=== PATIENT | male | born 1960 | race Caucasian/White ===

== ENCOUNTER 2024-03-19 11:42 | Outpatient (OUT) | payer OTHER, SELFPAY ==
[2024-03-19 12:23] LABS: Basophils Absolute Auto 0.1 10^3/uL (0.0-0.1); Basophils Percent Auto 0.9 % (0.2-2.0); Eosinophils Absolute Auto 0.1 10^3/uL (0.0-0.7); Hematocrit 46.3 % (42.0-54.0); Hemoglobin 15.5 g/dL (14.0-18.0); Immature Granulocytes Abs Auto 0.02 10^3/uL (0.00-0.03); Immature Granulocytes Pct Auto 0.3 % (0.0-0.5); Lymphocytes Absolute Auto 2.3 10^3/uL (1.2-3.8); Lymphocytes Percent Auto 32.2 % (20.5-60.0); Mean Corpuscular HGB Conc 33.5 g/dL (29.9-35.2); Mean Corpuscular Hemoglobin 30.9 pg (25.9-34.0); Mean Corpuscular Volume 92.4 fL (80.0-94.0); Mean Platelet Volume 9.6 fL (9.5-13.5); Monocytes Absolute Auto 0.7 10^3/uL (0.3-0.8); Monocytes Percent Auto 9.8 % (1.7-12.0); Neutrophils Absolute Auto 3.9 10^3/uL (1.4-6.5); Neutrophils Percent Auto 55.8 % (43.0-75.0); Platelet Count 198 10^3/uL (150-450); Red Blood Count 5.01 10^6/uL (4.70-6.10); Red Cell Distribution Width 12.5 % (11.0-15.0)
[2024-03-19 13:31] LABS: Alanine Aminotransferase 19 U/L (16-63); Albumin Globulin Ratio 1.3; Albumin Level 3.9 g/dL (3.4-5.0); Alkaline Phosphatase 39 U/L (46-116); Anion Gap 12.2; Aspartate Amino Transferase 21 U/L (15-37); BUN Creatinine Ratio 16.8; Bilirubin Total 0.9 mg/dL (0.2-1.0); Calcium 9.4 mg/dL (8.5-10.1); Carbon Dioxide 30.5 mmol/L (21.0-32.0); Chloride 104 mmol/L (98-107); Chol HDL Ratio 2.8; Cholesterol 188 mg/dL (<=200); Estimated GFR (African America >60 (>=60 mL/min/1.73m^2); Estimated GFR (Non-African Ame >60 (>=60 mL/min/1.73m^2); Globulin 2.9 g/dL; Glucose 89 mg/dL (74-106); HDL Cholesterol 67 mg/dL (40-60); Potassium 4.7 mmol/L (3.5-5.1); Sodium 142 mmol/L (136-145); Total Protein 6.8 g/dL (6.4-8.2); Triglycerides 96 mg/dL (<=150); VLDL CHOLESTEROL 19.2 mg/dL
[2024-03-19 13:45] LABS: Prostate Specific Antigen Scrn 0.37 ng/mL (<=4.00)
[2024-03-20 15:08] LABS: Deamidated Gliadin Abs, IgA 3 units (0-19); Deamidated Gliadin Abs, IgG 2 units (0-19); Endomysial Antibody IgA Negative (Negative); Immunoglobulin A, Qn, Serum 134 mg/dL (61-437); t-Transglutaminase (tTG) IgA <2 U/mL (0-3); t-Transglutaminase (tTG) IgG <2 U/mL (0-5)
== END 2024-03-19 11:43 | disposition home or self-care (01) ==
LOC: LAB 11:46
PROVIDERS: PCP Internal Medicine; Visit Provider Internal Medicine
DX: Z00.00 Encounter for general adult medical examination without abnormal findings (principal); Z83.79 Family history of other diseases of the digestive system
CPT/HCPCS: 36415; 80053; 80061; 82784; 85025; 86231; 86258; 86364; G0103

== ENCOUNTER 2024-06-17 06:56 | Outpatient (OUT) | payer OTHER, SELFPAY ==
--- NOTE | 2024-06-17 | US_ITS ---
The [address] [address] Patient Name: OLAMIDE HARMON MRN: [id number] date: 1960 Sex: M Assigned Patient Location: [place] Current Patient Location: [place] Accession/Order Number: [id number] Exam Date: 06/17/2024 08:47 Report Date: 06/17/2024 08:53 At the request of: LE LANDRY DO Procedure: US abdominal aortic aneurysm Aortic ultrasound Reason for exam: Family history of abdominal aortic aneurysm. Comparison: none Technique: Grayscale, spectral and color Doppler images of the abdominal aorta were obtained. Findings: There is fusiform aneurysmal dilatation of the proximal aorta measuring 3 cm . There is atherosclerotic calcification. Common iliac arteries appear normal in caliber. US/US abdominal aortic aneurysm Impression: Fusiform aneurysmal dilatation of the proximal aorta measuring 3 cm. Please see follow-up recommendations below. For management of fusiform AAA: 3.0-3.4 cm AAA, recommend follow-up every 3 years. References: J Am Amor Radiol 2013; 10(10):789-794; J Vasc Surg. 2018; 67:2-77 Impression dictated by: Shane Anderson Jr., D.O.06/17/2024 8:53 AM Dictation [facility] Electronically authenticated by: [id number] Date: 06/17/2024 08:53
--- OUTSIDE RECORDS SUMMARY | 2024-06-17 06:59 | XMS_ITS | CCD ---
Author Organization [facility] CliniSypr Care Team Providers Care Powder Hand Name Role Phone DR SEVEN GARRETT Attending Unavailable FRANTZ, DR LUJAN Admitting Unavailable FRANTZ, DR LUJAN Primary Care Unavailable FRANTZ, DR LUJAN Consulting Unavailable GIANA, DR LISBETH Monteiro Consulting Unavailable TRACEY MATIAS Admitting Unavailable CARLOS .TRACEY Consulting Unavailable TRACEY MATIAS Attending William GARRETT, DR LUJAN Primary Care Unavailable Seven Garrett Unavailable Tracey Gonzalez Attending Tracey Waite Attending Unavailable Tracey Gonzalez Attending SEVEN Brandon Referring Unavailable Tracey Gonzalez Attending Unavailable Allergies Allergy Classification Reported Allergen(s) Allergy Type Date of Onset Reaction(s) Facility (2 sources) Bacitracin / Neomycin / Polymyxin B Drug Allergy Unknown [facility] Other (1 source) Shellfish; Translations: [shellfish] Propensity to adverse reactions (disorder) [facility] Repository (1 source) No Known Medication Allergies; Translations: [No Known Medication Allergies] Propensity to adverse reactions (disorder) [facility] Repository (1 source) Neosporin Wound Cleanser *ANTISEPTICS & DISINFECTA Propensity to adverse reactions Unknown [facility] Other (1 source) patient allergy list reviewed by nurse or physicia Propensity to adverse reactions 9 Comment:Done [facility] Other (1 source) Bacitracin Drug Allergy 5 Unknown Reaction [facility] (1 source) Neomycin Drug Allergy 5 Unknown Reaction [facility] (1 source) polymyxin B Allergy to substance 5 Unknown Reaction [facility] (1 source) Neosporin Wound Cleanser *ANTI Allergy to substance 5 Unknown Reaction [facility] Comment on above: Free Text Allergy: N eosporin Wound Cleanser *ANTISEPTICS & DISINFECTA Medications Current Medications Medication Drug Class(es) Dates Sig (Normalized) Sig (Original) apixaban 5 mg oral tablet (4 sources) Factor Xa Inhibitor Start: 02-13-2024 End: 03-18-2024 take 1 tablet by mouth twice daily Apixaban (Eliquis) 5 mg tablet Active 5 MG PO Twice daily 180 90 March 18, 2024 10:33am take 1 tablet by mouth every twe lve hours Eliquis 5 MG 1 tablet Orally Twice a day for 30 days Active Problems Active Problems Problem Classification Problem Date Documented Da te Episodic/Chronic Anxiety disorders (1 source) Generalized anxiety disorder; Translations: [Generalized anxiety disorder] Onset: 05-29-2017 Chronic Genitourinary symptoms and ill-defined conditions (1 source) Nocturia Episodic Hyperplasia of prostate (5 sources) Lower urinary tract symptoms due to benign prostatic hypertrophy; Translations: [Benign prostatic hyperplasia with lower urinary tract symptoms] Onset: 12-21-2014 Chronic Other aftercare (2 sources) Long-term current use of anticoagulant; Translations: [Long-term (current) use of anticoagulants] Onset: 06-06-2017 Episodic Other male genital disorders (4 sources) Male erectile dysfunction, unspecified; Translations: [MALE ERECTILE DYSFUNCTION UNS] Onset: 12-05-2021 Chronic Other male genital disorders (2 sources) Testicular mass; Translations: [Disorder of male genital organs, unspecified] Episodic Other male genital disorders (1 source) Disorder of male genital organ; Translations: [Other specified disorders of the male genital organs] Episodic Other nutritional; endocrine; and metabolic disorders (3 sources) Body mass index 30+ - obesity; Translations: [Obesity, unspecified] Onset: 05-29-2017 Chronic Other nutritional; endocrine; and metabolic disorders (1 source) Obesity, unspecified Chronic Other nutritional; endocrine; and metabolic disorders (1 source) Obesity; Translations: [Obesity, unspecified] Chronic Other nutritional; endocrine; and metabolic disorders (1 source) Simple obesity ; Translations: [Other obesity due to excess calories] Onset: 12-21-2014 Chronic Other screening for suspected conditions (not mental disorders or infectious disease) (7 sources) Encounter for screening for malignant neoplasm of prostate; Translations: [Encounter for screening for malignant neoplasm of colon] Onset: 12-21-2014 Episodic Comment on above: PSA: 0.69 - 04/2020, 0.39 - 07/2021, Phlebitis; thrombophlebitis and thromboembolism (9 sources) H/O: Deep vein thrombosis; Translations: [Personal history of other venous thrombosis and embolism] Onset: 05-29-2017 Episodic Pulmonary heart disease (1 source) Saddle embolus of pulmonary artery with acute cor pulmonale; Translations: [Saddle embolus of pulmonary artery with acute cor pulmonale] Onset: 06-06-2017 Chronic Pulmonary heart disease (7 sources) H/O: pulmonary embolus; Translations: [Personal history of pulmonary embolism] Onset: 05-29-2017 03-15-2024 Episodic Sprains and strains (1 source) Neck sprain; Translations: [Strain of muscle, fascia and tendon at neck level, initial encounter] Episodic Past or Other Problems Problem Classification Problem Date Documented Da te Episodic/Chronic Allergic reactions (1 source) Allergic contact dermatitis due to plants, except food; Translations: [Allergic contact dermatitis due to plants, except food] Onset: 08-08-2018 Episodic Other circulatory disease (1 source) Elevated blood-pressure reading without diagnosis of hypertension; Translations: [Elevated blood-pressure reading, without diagnosis of hypertension] Onset: 12-21-2014 Episodic Other connective tissue disease (1 source) Contracture of palmar fascia; Translations: [Contracture of palmar fascia] Onset: 12-21-2014 Episodic Other lower respiratory disease (1 source) Dyspnea; Translations: [Dyspnea, unspecified] Onset: 05-30-2017 Episodic Other male genital disorders (1 source) Other specified disorders of the male genital organs; Translations: [OTHER SPEC D/O MALE GENITAL ORGANS] Onset: 07-14-2021 Episodic Residual codes; unclassified (1 source) Localized edema; Translations: [Localized edema] Onset: 05-29-2017 Episodic Residual codes; unclassified (1 source) Sleep disorder; Translations: [Persistent disorder of initiating or maintaining sleep] Onset: 05-29-2017 Episodic Results Test Name Value Interpretation Reference Range Facil ity Lab Reportson 12-07-2021 Lab Reports [id number] .00CD:127 Normal [facility] Reminderson 12-07-2021 Reminders - From: Suzi Pereira MA (EU - Recalls Lue) To: EU - Recalls Lue; Sent: 12/07/2021 08:37:41 EDT Show up: 12/07/2021 08:38:00 EDT Subject: Scrotal US Reminder/Recall From: Annika Fischer To: EU - Recalls Lue; Sent: 12/06/2021 10:15:42 EDT Subject: General Message Caller Name: ROGELIO HARMON; Caller Number: Kacey , Gita Pt will need a scrotal US done before his follow up appointment in July. Normal [facility] Screenson 12-07-2021 Screens [id number] [id number]:127 Normal [facility] Screens [id number] .[id number]:127 Normal [facility] Patient Educationon 12-07-19 Patient Education Urology Testicular Self-Exam A self-examination of your testicles (testicular self-exam) involves looking at and feeling your testicles for abnormal lumps or swelling. Several things can cause swelling, lumps, or pain in your testicles. Some of these causes are: ? Injuries. ? Inflammation. ? Infection. ? Buildup of fluids around your testicle (hydrocele). ? Twisted testicles (testicular torsion). ? Testicular cancer. Why is it important to do a testicular self-exam? Self-examination of the testicles and the left and right groin areas may be recommended if you are at risk for testicular cancer. Your groin is where your lower abdomen meets your upper thighs. You may be at risk for testicular cancer if you have: ? An undescended testicle (cryptorchidism). ? A history of previous testicular cancer. ? A family history of testicular cancer. How to do a testicular self-exam The testicles are easiest to examine after a warm bath or shower. They are more difficult to examine when you are cold. This is because the muscles attached to the testicles retract and pull them up higher or into the abdomen. A normal testicle is egg-shaped and feels firm. It is smooth and not tender. The spermatic cord can be felt as a firm, spaghetti-like cord at the back of your testicle. Look and feel for changes ? Stand and hold your penis away from your body. ? Look at each testicle to check for lumps or swelling. ? Roll each testicle between your thumb and forefinger, feeling the entire testicle. Feel for: ? Lumps. ? Swelling. ? Discomfort. ? Check the groin area between your abdomen and upper thighs on both sides of your body. Look and feel for any swelling or bumps that are tender. These could be enlarged lymph nodes. Contact a health care provider if: ? You find any bumps or lumps, such as a small, hard, pea-sized lump. ? You find swelling, pain, or soreness. ? You see or feel any other changes in your testicles. Summary ? A self-examination of your testicles (testicular self-exam) involves looking at and feeling your testicles for any changes. ? Self-examination of the testicles and the left and right groin areas may be recommended if you are at risk for testicular cancer. ? You should check each of your testicles for lumps, swelling, or discomfort. ? You should check for swelling or tender bumps in your groin area between your lower abdomen and upper thighs. This information is not intended to replace advice given to you by your health care provider. Make sure you discuss any questions you have with your health care provider. Document Released: 06/03/2001 Document Revised: 06/18/2019 Document Reviewed: 01/21/2017 [employer] Patient Education ? 2019 [employer] Normal [facility] TESTOSTERONE, TOTALon 2021 Testosterone [Mass/Vol] 647 ng/dL Normal [id number] [facility] Comment on above: Result Comment: Adul t male reference interval is based on a population of healthy nonobese males (BMI <30) between 19 and 39 years old. Karlie et.al. JCEM 2017,102;2065-6986. PMID: 39026063. Performed By: #### T ESTTOT #### [facility] [address] [address] [address] Ninfa Donato Urology Office/Clinic Noteon 12-06-2021 Urology Office/Clinic Note Chief Complaint 1 month with testosterone level HPI Staff Rogelio is here today for a 1 month follow up with testosterone level. Current Testosterone level done on 12/05/21 was 647. Previous DX: Epididymal cyst, testicular cyst, anticoagulated, ED. IPSS is 4. LISS is 18. Pt is not taking Cialis due to medication not being covered by insurance so pt said it would be 1400 dollars. Dysuria: _Denies Incomplete bladder emptying: _Denies Hematuria: _Denies Frequency: _Denies Urgency: _Denies Nocturia: _0-1x Stream: _steady Leaking: _Denies Post void dripping: _Denies Wearing pads/ Depends: _Denies Urge incontinence: _Denies Stress incontinence: _Denies Incontinence without Sensory Awareness: _Denies Abdominal pain: _Denies Flank pain: _Denies Sexual complaints: _ History of Present Illness Tests Reviewed: Reviewed UA. I have reviewed and verified the staff HPI to be accurate for this encounter. I have reviewed the previous health record information and history for this patient from Dr. Gonzalez There have been no associated fever, chills, flank pain, or blood in the urine. Denies any urinary infections since last encounter. Review of Systems PHQ Score Initial Depression Screen Score: 0 ROS - Provider Constitutional: denies weight loss, denies hot flashes. Eyes: denies eye problems. Gastrointestinal: denies nausea, denies vomiting. Cardiovascular: denies chest pain or angina. Integumentary: no dryness Musculoskeletal: denies musculoskeletal symptoms. ENMT: denies otolaryngeal symptoms. Respiratory: no shortness of breath. Heme/Lymph: denies easy bleeding tendency, denies easy bruising tendency. Psychiatric: no confusion, no anxiety. Genitourinary: HPI Physical Exam Vitals & Measurements HR: 66(Peripheral) RR: 16 BP: 155/98 HT: 68 in HT: 172 cm WT: 86.3 kg WT: 189.86 lb BMI: 29.17 General Appearance: alert, no distress, well nourished, well developed male. Genitourinary: Flank Pain: none. Bladder: nonpalpable. Assessment/Plan 1. Epididymal cyst (N50.3: Cyst of epididymis) - Scrotal US done on 07/13/2021 [facility] - 1.2 cm left epididymal cyst vs spermatocele corresponding to the patients palpable mass. Prior exam minimally tender. No change when last seen, not bothersome at this time Cont supportive care prn 2. 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 Denies trauma to testicle area, denies testicle cancer in the family, denies painful ejaculation Advised pt that if he notices any swelling, or redness, or any signs of an infection to give our office a call - Pt was advised to continue to wear scrotal support, ice, and taking anti inflammatory medication if this problem becomes bothersome to him - Discussed repeating a Scrotal US 1 year from last, pt agrees with this plan. 3. Anticoagulated (Z79.01: equipment [employer] (current) use of anticoagulants) - Eliquis 5mg qd Elevated risk of periop complications 4. ED (erectile dysfunction) (N52.9: Male erectile dysfunction, unspecified) - Current Testosterone level done on 12/05/21 was 647 - LISS(18) previously was 17 - Pt was started on Cialis 10mg PRN at last visit but was unable to try this therapy because it was too costly - Tried sending prescription to a different pharmacy ([facility]) , and pt was advised if the medication is still too costly for him, to give our office a call so that we can try to send the prescription to [facility]. Follow-up With When Contact Information Carlos LEYVA, Tracey Leyva, [facility], [facility] Within 6 months Additional Instructions: scrotal us Patient Education Testicular Self-Exam Gary, Annika Fischer, personally scribed for Dr. Gonzalez on 12/06/2021 10:14:08. . Documentation recorded by the scribanel, Annika Fischer, accurately reflects the services(s) I performed and decisions made by me. Authenticated by Dr. Gonzalez on 12/06/2021 10:17:51. Problem List/Past Medical History Ongoing Anticoagulated ED (erectile dysfunction) Epididymal cyst Hypogonadism male Testicular cyst Historical Mass of testicle Procedure/Surgical History Hand, Tonsillectomy, Vasectomy. Medications 2D echo complete, 0, Not taking Cialis 10 mg Tab, See Instructions, PRN, 3 refills Eliquis 5 mg oral tablet, 5 mg= 1 tab(s), Oral, BID, 3 refills traMADOL 50 mg Tab, 50 mg= 1 tab(s), Oral, q12hr, PRN, Not taking Zyrtec, Daily Allergies shellfish (swelling, hives) Social History Alcohol - Low Risk, 05/30/2017 Beer, 1-2 times per month, 05/30/2017 Substance Abuse - Denies Substance Abuse, 05/30/2017 Tobacco - Denies Tobacco Use, 05/30/2017 Never (less than 100 in lifetime) Tobacco Use:. Never Smokeless Tobacco Use:. Cigarettes, 12/06/2021 Family History COPD: Mother. Heart disease: Father. Immunizati (more content not included)... Normal [facility] Comment on above: Result Comment: Elec tronically Signed By: Tracey Gonzalez MD\.br\Date and Time Signed: 12/06/21 10:17 EDT\.br\Electronically Co-Signed By: Annika Fischer\.br\Date and Time Co-Signed: 12/06/21 10:14 EDT Ambulatory Visit Summaryon 0 11-01-2021 Ambulatory Visit Summary ROGELIO HARMON :1960 Visit Date:11/01/2021 Ambulatory Visit Instructions Your Diagnosis Epididymal cyst Testicular cyst Anticoagulated ED (erectile dysfunction) Tests Performed Urnls Dip Stick Auto w/o Microscopy POC [id number] Your Care Team Attending Physician - Tracey Gonzalez MD Primary Care Physician - SEVEN GARRETT DO This Is Your Medications List tadalafil (Cialis 10 mg Tab) Contact prescribing physician if questions or concerns Misc Prescription (2D echo complete) apixaban (Eliquis 5 mg oral tablet) cetirizine (Zyrtec) tramadol (traMADOL 50 mg Tab) Procedures Performed Hand, Tonsillectomy, Vasectomy. Discharge Vitals Heart Rate (Peripheral) 71 Blood Pressure 132/100 Height 172 cm Height 172.0 cm Weight 86.3 kg Weight 86.3 kg BMI 29.17 What to do next Scheduled Follow-Up Appointments Saturday 8:45 AM EDT With: Carlos LEYVA, Tracey Leyva Where: [facility] Patient Educationon 11-02-19 Patient Education Urology Erectile Dysfunction Erectile dysfunction (ED) is the inability to get or keep an erection in order to have sexual intercourse. Erectile dysfunction may include: ? Inability to get an erection. ? Lack of enough hardness of the erection to allow penetration. ? Loss of the erection before sex is finished. What are the causes? This condition may be caused by: ? Certain medicines, such as: ? Pain relievers. ? Antihistamines. ? Antidepressants. ? Blood pressure medicines. ? Water pills (diuretics). ? Ulcer medicines. ? Muscle relaxants. ? Drugs. ? Excessive drinking. ? Psychological causes, such as: ? Anxiety. ? Depression. ? Sadness. ? Exhaustion. ? Performance fear. ? Stress. ? Physical causes, such as: ? Artery problems. This may include diabetes, smoking, liver disease, or atherosclerosis. ? High blood pressure. ? Hormonal problems, such as low testosterone. ? Obesity. ? Nerve problems. This may include back or pelvic injuries, diabetes mellitus, multiple sclerosis, or Parkinson disease. What are the signs or symptoms? Symptoms of this condition include: ? Inability to get an erection. ? Lack of enough hardness of the erection to allow penetration. ? Loss of the erection before sex is finished. ? Normal erections at some times, but with frequent unsatisfactory episodes. ? Low sexual satisfaction in either partner due to erection problems. ? A curved penis occurring with erection. The curve may cause pain or the penis may be too curved to allow for intercourse. ? Never having nighttime erections. How is this diagnosed? This condition is often diagnosed by: ? Performing a physical exam to find other diseases or specific problems with the penis. ? Asking you detailed questions about the problem. ? Performing blood tests to check for diabetes mellitus or to measure hormone levels. ? Performing other tests to check for underlying health conditions. ? Performing an ultrasound exam to check for scarring. ? Performing a test to check blood flow to the penis. ? Doing a sleep study at home to measure nighttime erections. How is this treated? This condition may be treated by: ? Medicine taken by mouth to help you achieve an erection (oral medicine). ? Hormone replacement therapy to replace low testosterone levels. ? Medicine that is injected into the penis. Your health care provider may instruct you how to give yourself these injections at home. ? Vacuum pump. This is a pump with a ring on it. The pump and ring are placed on the penis and used to create pressure that helps the penis become erect. ? Penile implant surgery. In this procedure, you may receive: ? An inflatable implant. This consists of cylinders, a pump, and a reservoir. The cylinders can be inflated with a fluid that helps to create an erection, and they can be deflated after intercourse. ? A semi-rigid implant. This consists of two silicone rubber rods. The rods provide some rigidity. They are also flexible, so the penis can both curve downward in its normal position and become straight for sexual intercourse. ? Blood vessel surgery, to improve blood flow to the penis. During this procedure, a blood vessel from a different part of the body is placed into the penis to allow blood to flow around (bypass) damaged or blocked blood vessels. ? Lifestyle changes, such as exercising more, losing weight, and quitting smoking. Follow these instructions at home: Medicines ? Take [id number] and prescription medicines only as told by your health care provider. Do not increase the dosage without first discussing it with your health care provider. ? If you are using self-injections, perform injections as directed by your health care provider. Make sure to avoid any veins that are on the surface of the penis. After giving an injection, apply pressure to the injection site for 5 minutes. General instructions ? Exercise regularly, as directed by your health care provider. Work with your health care provider to lose weight, if needed. ? Do not use any products that contain nicotine or tobacco, such as cigarettes and e-cigarettes. If you need help quitting, ask your health care provider. ? Before using a vacuum pump, read the instructions that come with the pump and discuss any questions with your health care provider. ? Keep all follow-up visits as told by your health care provider. This is important. Contact a health care provider if: ? You feel nauseous. ? You vomit. Get help right away if: ? You are taking oral or injectable medicines and you have an erection that lasts longer than 4 hours. If your health care provider is unavailable, go to the nearest emergency room for evaluation. An erection that lasts much longer than 4 hours can result in permanent damage to your penis. ? You have severe pain in your groin or abdomen. ? You develop redness or severe swelling of your (more content not included)... Normal [facility] Urology Office/Clinic Noteon 11-01-2021 Urology Office/Clinic Note Chief Complaint 2 month f/u HPI Staff Rogelio is a 61 y/o male here for a 2 month f/u. Previous DX: Epididymal cyst, mass of testicle. Pt states that nothing has changed since his last office visit. Dysuria: _Denies Incomplete bladder emptying: _Denies Hematuria: _Denies Frequency: _Denies Urgency: _Denies Nocturia: _Denies Stream: _steady stream Leaking: _Denies Post void dripping: _Denies Wearing pads/ Depends: _Denies Urge incontinence: _Denies Stress incontinence: _Denies Incontinence without Sensory Awareness: _Denies Abdominal pain: _ Flank pain: _Denies Sexual complaints: _ History of Present Illness Tests Reviewed: Reviewed UA. I have reviewed and verified the staff HPI to be accurate for this encounter. I have reviewed the previous health record information and history for this patient from Dr. Gonzalez There have been no associated fever, chills, flank pain, or blood in the urine. Denies any urinary infections since last encounter. Review of Systems ROS - Provider Constitutional: denies weight loss, denies hot flashes. Eyes: denies eye problems. Gastrointestinal: denies nausea, denies vomiting. Cardiovascular: denies chest pain or angina. Integumentary: no dryness Musculoskeletal: denies musculoskeletal symptoms. ENMT: denies otolaryngeal symptoms. Respiratory: no shortness of breath. Heme/Lymph: denies easy bleeding tendency, denies easy bruising tendency. Psychiatric: no confusion, no anxiety. Genitourinary: see HPI Physical Exam Vitals & Measurements HR: 71(Peripheral) BP: 132/100 HT: 172 cm HT: 172.0 cm WT: 86.3 kg WT: 86.3 kg BMI: 29.17 General Appearance: alert, no distress, well nourished, well developed male. Assessment/Plan 61 yo healthy M presented for evaluation of mild L hemiscrotal pain x 2 months. Hx vasectomy 30 yrs ago IPSS score 1, Qol score 1 , LISS 17. PSA 0.39 done 07/13/21. Pt denies any urinary problems, UA today is clear. PCP checks RONEY last exam was negative 1. Epididymal cyst (N50.3: Cyst of epididymis) Scrotal US done on 07/13/2021 [facility] - 1.2 cm left epididymal cyst vs spermatocele corresponding to the patients palpable mass. Prior exam minimally tender. No change when last seen. Pt stated his pain comes and goes, depending what kind of physical activity he is doing Did not try scrotal support Stated he is not interested in surgery, cont supportive care Notes ED starting at same time. No pain during intercourse or ejaculation, no pain at site. Unlikely cause of ED 2. 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 Denies trauma to testicle area, denies testicle cancer in the family, denies painful ejaculation Advised pt that if he notices any swelling, or redness, or any signs of an infection to give our office a call. Pt understands and agrees with this plan. 3. Anticoagulated (Z79.01: equipment [employer] (current) use of anticoagulants) pt is currently taking Eliquis 5mg qd hx BL DVT/PE after plane ride. Elevated risk of periop complications in future 4. ED (erectile dysfunction) (N52.9: Male erectile dysfunction, unspecified) Pt stated he does have the desire, but can not keep an erection, not firm enough. Still concern for low T although sx not consistent. Discussed an erection device and erection ring to help pt keep an erection, which would be the less invasive. Tom curve in penis. Medication such Cialis and tadalafil which will help pt to get and maintain an erection. Discussed risk and side effects of both medications. Pt stated he has tried Viagra in the past. Also discussed penile injections and penile prosthesis, and the risk sand benefits of these. Pt will have his testosterone levels checked prior to next appointment. If low, will order repeat T with LH, FSH and prolactin. Review at f/u Pt will be started on Cialis 10 mg PRN. Max 20 mg. Discussed the medication side effects, and the patient will monitor closely for these, as well as for symptom improvement. If severe side effects occur, the medication should be stopped and the office notified. Follow-up With When Contact Information Carlos LEYVA, Tracey Leyva, URL, URO Within 4 weeks Additional Instructions: testosterone levels Patient Education Erectile Dysfunction I, Annika Fischer, personally scribed for Dr. Gonzalez on 11/01/2021 08:58:53. . Documentation recorded by the scribe, Annika Fischer, accurately reflects the services(s) I performed and decisions made by me. Authenticated by Dr. Gonzalez on 11/01/2021 12:54:51. Problem List/Past Medical History Ongoing Anticoagulated Epididymal cyst Testicular cyst Historical Mass of testicle Procedure/Surgical History Hand, Tonsillectomy, Vasectomy. Medications 2D echo complete, 0, Not taking Eliquis 5 mg oral tablet, 5 mg= (more content not included)... [facility] Comment on above: Result Comment: Elec tronically Signed By: Tracey Gonzalez MD\.br\Date and Time Signed: 11/01/21 12:54 EDT\.br\Electronically Co-Signed By: Annika Fischer.br\Date and Time Co-Signed: 11/01/21 08:59 EDT [facility] 08-17-2021 Forms [id number] .00CD:127 [facility] Physician Referralon 022 Physician Referral [id number]# 1.00CD:127 [facility] Screenson 08-17-2021 Screens [id number]# 1.00CD:127 Normal [facility] Screens [id number]# 1.00CD:127 Normal [facility] Ambulatory Visit Summaryon 0 08-16-2021 Ambulatory Visit Summary ROGELIO HARMON :1960 Visit Date:08/16/2021 Ambulatory Visit Instructions Your Diagnosis Epididymal cyst Anticoagulated Tests Performed Urnls Dip Stick Auto w/o Microscopy POC 40382 Your Care Team Attending Physician - Carlos LEYVA, Tracey Leyva Primary Care Physician - FRANTZ JONES, SEVEN Referring Physician - SEVEN GARRETT DO This Is Your Medications List Contact prescribing physician if questions or concerns Misc Prescription (2D echo complete) apixaban (Eliquis 5 mg oral tablet) cetirizine (Zyrtec) tramadol (traMADOL 50 mg Tab) Procedures Performed Hand, Tonsillectomy, Vasectomy. Discharge Vitals Heart Rate (Peripheral) 87 Respiratory Rate 16 Blood Pressure 155/94 Height 172 cm Height 172.0 cm Weight 86.3 kg Weight 86.3 kg BMI 29.17 What to do next Scheduled Follow-Up Appointments Saturday 8:45 AM EDT With: Carlos LEYVA, Tracey eLyva Where: [facility] Patient Educationon 08-17-19 22 Patient Education Dermatology Epidermal Cyst An epidermal cyst is a sac made of skin tissue. The sac contains a substance called keratin. Keratin is a protein that is normally secreted through the hair follicles. When keratin becomes trapped in the top layer of skin (epidermis), it can form an epidermal cyst. Epidermal cysts can be found anywhere on your body. These cysts are usually harmless (benign), and they may not cause symptoms unless they become infected. What are the causes? This condition may be caused by: ? A blocked hair follicle. ? A hair that curls and re-enters the skin instead of growing straight out of the skin (ingrown hair). ? A blocked pore. ? Irritated skin. ? An injury to the skin. ? Certain conditions that are passed along from parent to child (inherited). ? Human papillomavirus (HPV). ? Long-term (chronic) sun damage to the skin. What increases the risk? The following factors may make you more likely to develop an epidermal cyst: ? Having acne. ? Being overweight. ? Being 30-40 years old. What are the signs or symptoms? The only symptom of this condition may be a small, painless lump underneath the skin. When an epidermal cyst ruptures, it may become infected. Symptoms may include: ? Redness. ? Inflammation. ? Tenderness. ? Warmth. ? Fever. ? Keratin draining from the cyst. Keratin is grayish-white, bad-smelling substance. ? Pus draining from the cyst. How is this diagnosed? This condition is diagnosed with a physical exam. ? In some cases, you may have a sample of tissue (biopsy) taken from your cyst to be examined under a microscope or tested for bacteria. ? You may be referred to a health care provider who specializes in skin care (licensed club manager). How is this treated? In many cases, epidermal cysts go away on their own without treatment. If a cyst becomes infected, treatment may include: ? Opening and draining the cyst, done by a health care provider. After draining, minor surgery to remove the rest of the cyst may be done. ? Antibiotic medicine. ? Injections of medicines (steroids) that help to reduce inflammation. ? Surgery to remove the cyst. Surgery may be done if the cyst: ? Becomes large. ? Bothers you. ? Has a chance of turning into cancer. ? Do not try to open a cyst yourself. Follow these instructions at home: ? Take vpzv-fsc-lkrbayz and prescription medicines only as told by your health care provider. ? If you were prescribed an antibiotic medicine, take it it as told by your health care provider. Do not stop using the antibiotic even if you start to feel better. ? Keep the area around your cyst clean and dry. ? Wear loose, dry clothing. ? Avoid touching your cyst. ? Check your cyst every day for signs of infection. Check for: ? Redness, swelling, or pain. ? Fluid or blood. ? Warmth. ? Pus or a bad smell. ? Keep all follow-up visits as told by your health care provider. This is important. How is this prevented? ? Wear clean, dry, clothing. ? Avoid wearing tight clothing. ? Keep your skin clean and dry. Take showers or baths every day. Contact a health care provider if: ? Your cyst develops symptoms of infection. ? Your condition is not improving or is getting worse. ? You develop a cyst that looks different from other cysts you have had. ? You have a fever. Get help right away if: ? Redness spreads from the cyst into the surrounding area. Summary ? An epidermal cyst is a sac made of skin tissue. These cysts are usually harmless (benign), and they may not cause symptoms unless they become infected. ? If a cyst becomes infected, treatment may include surgery to open and drain the cyst, or to remove it. Treatment may also include medicines by mouth or through an injection. ? Take unoa-tcs-xmwkpay and prescription medicines only as told by your health care provider. If you were prescribed an antibiotic medicine, take it as told by your health care provider. Do not stop using the antibiotic even if you start to feel better. ? Contact a health care provider if your condition is not improving or is getting worse. ? Keep all follow-up visits as told by your health care provider. This is important. This information is not intended to replace advice given to you by your health care provider. Make sure you discuss any questions you have with your health care provider. Document Released: 01/26/2005 Document Revised: 06/18/2019 Document Reviewed: 09/08/2018 [employer] Patient Education ? 2019 [employer] [facility] Urology Office/Clinic Noteon 08-16-2021 Urology Office/Clinic Note Chief Complaint Left scrotal mass HPI Staff Rogelio is here today as a new patient referred for a left scrotal mass. Scrotal US done on 07/13/2021 impression showed 1.2 cm left epididymal lesion corresponding to the patients palpable mass, spermatocele versus cyst, 0.7 cm anechoic area lateral left testicle, intratesticular cyst favored. Some pain every now and then that's goes into his abdomen noticed it about 2 months has not noticed any change in size. Dysuria: _Denies Incomplete bladder emptying: _Denies Hematuria: _Denies Frequency: _Denies Urgency: _Denies Nocturia: _Denies Stream: _steady stream Leaking: _Denies Post void dripping: _Denies Wearing pads/ Depends: _Denies Urge incontinence: _Denies Stress incontinence: _Denies Incontinence without Sensory Awareness: _Denies Abdominal pain: _ Flank pain: _Denies Sexual complaints: _ History of Present Illness Tests Reviewed: Reviewed UA, external records and Scrotal US, new pt paperwork I have reviewed and verified the staff HPI to be accurate for this encounter. I have reviewed the previous health record information and history for this patient There have been no associated fever, chills, flank pain, or blood in the urine. Denies any urinary infections since last encounter. Review of Systems PHQ Score Initial Depression Screen Score: 0 ROS - Provider Constitutional: denies weight loss, denies hot flashes. Eyes: denies eye problems. Gastrointestinal: denies nausea, denies vomiting. Cardiovascular: denies chest pain or angina. Integumentary: no dryness Musculoskeletal: denies musculoskeletal symptoms. ENMT: denies otolaryngeal symptoms. Respiratory: no shortness of breath. Heme/Lymph: denies easy bleeding tendency, denies easy bruising tendency. Psychiatric: no confusion, no anxiety. Genitourinary: see HPI Physical Exam Vitals & Measurements HR: 87(Peripheral) RR: 16 BP: 155/94 HT: 172 cm HT: 172.0 cm WT: 86.3 kg WT: 86.3 kg BMI: 29.17 General Appearance: alert, no distress, well nourished, well developed male. Head: normocephalic . Eyes: normal orbit and globe. ENMT: normal examination of external ears. Chest: symmetric chest rise , respirations non labored. Cardiovascular: regular rate and rhythm. Abdomen: soft, non distended, no tenderness. no inguinal hernia palpable Genitourinary: normal scrotum, normal urethra, normal epididymis on right, left epididymal head mild fullnes and TTP, mild left lateral testicular TTP without mass, Left epididymal tail cyst 1 cm very minimally tender, normal vas deferens/spermatic cord. Flank Pain: none. Bladder: nonpalpable. Penis: normal shaft, normal glans. Lymph Nodes: unremarkable palpation of the cervical area. Skin: warm, dry, no bruising. Psychiatric: cooperative, affect appropriate for age, normal judgement, euthymic mood. Assessment/Plan 61 yo healthy M presents for new pt evaluation of mild L hemiscrotal pain x 2 months. Hx vasectomy 30 yrs ago IPSS score 1, Qol score 1 , LISS 17. 1. Epididymal cyst (N50.3: Cyst of epididymis) Scrotal US done on 07/13/2021 [facility] - 1.2 cm left epididymal cyst vs spermatocele corresponding to the patients palpable mass. On exam, pain not specific to cyst. Discussed pathophysiology and implications of epididymal cyst. PSA 0.39 done 07/13/21. Pt denies any urinary problems, UA today is clear. PCP checks RONEY last exam was negative Advised pt to take Tylenol , jock/scrotal support, ice area for 20 minutes on/20 minutes off a day, no strenuous activity. Pt will call our office in a week or 2 if pain has increased or not at that point will order antibiotics All questions and concerns were discussed. Pt acknowledge and understands. Pt will call our office with any changes in urinary symptoms 2. 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 No left hydrocele or variocele. Pt has more pain or discomfort with strenuous activity. Denies trauma to testicle area, denies testicle cancer in the family, denies painful ejaculation. Scrotal US 07/13/21 -0.7 cm anechoic area lateral left testicle, intratesticular cyst favored Mildly tender on exam, no evidence of mass or infection. -Conservative mgmt recommended as above. If no improvement, pt will call and we will try empiric abx (levaquin x 10 days), however low suspicion of infectious etiology. -Surgery last resort 3. Anticoagulated (Z79.01: [facility] (current) use of anticoagulants) pt is currently taking Eliquis 5mg qd hx BL DVT/PE after plane ride. Elevated risk of periop complications in future Orders: Urnls Dip Stick Auto w/o Microscopy POC 87694 Follow-up With When Contact Information Carlos LEYVA, Tracey Leyva, URL, URO Within 3 months Additional Instructions: 1 or 2 month follow up Patient Education Epidermal Cyst IMonica personally scribed for Dr. Gonzalez on (more content not included)... Normal [facility] Comment on above: Result Comment: Elec tronically Signed By: Tracey Gonzalez MD\.br\Date and Time Signed: 08/16/21 12:22 EDT\.br\Electronically Co-Signed By: Monica Howell MA\.br\Date and Time Co-Signed: 08/16/21 10:25 EDT CBC AUTO DIFFon 07-13-2021 BASO # 0.0 103/ul Normal 0.0-0.1 [facility] Comment on above: Performed By: #### C BC #### [facility] [address] [address] [address] Ninfa Donato Basophils/100 WBC (Bld) 0.8 % Normal 0.2-2.0 [facility] Comment on above: Performed By: #### C BC #### [facility] [address] [address] [address] Ninfa Donato EO # 0.1 103/ul Normal 0.0-0.7 [facility] Comment on above: Performed By: #### C BC #### [facility] [address] [address] [address] Ninfa Donato Eosinophils/100 WBC (Bld) 2.5 % Normal 0.9-7.0 [facility] Comment on above: Performed By: #### C BC #### [facility] [address] [address] [address] Ninfa Donato Erythrocyte distribution width (RBC) [Ratio] 13.0 % Normal 11.0-15.0 [facility] Comment on above: Performed By: #### C BC #### [facility] [address] [address] [address] Ninfa Donato Hematocrit (Bld) [Volume fraction] 49.7 % Normal 42.0-54.0 [facility] Comment on above: Performed By: #### C BC #### [facility] [address] [address] [address] Ninfa Donato Hemoglobin (Bld) [Mass/Vol] 16.5 g/dL Normal 14.0-18.0 [facility] Comment on above: Performed By: #### C BC #### [facility] [address] [address] [address] Ninfa Donato IG # 0.04 10e3/ul Critically high 0.00-0.03 [facility] Comment on above: Performed By: #### C BC #### [facility] [address] [place] [address] Dr. Ninfa Donato IG % 0.8 % Critically high 0.0-0.5 [facility] Comment on above: Performed By: #### C BC #### [facility] [address] [place] [address] Dr. Ninfa Donato LYMPH # 1.5 103/ul Normal 1.2-3.8 [facility] Comment on above: Performed By: #### C BC #### [facility] [address] [place] [address] Dr. Ninfa Donato Lymphocytes/100 WBC (Bld) 29.0 % Normal 20.5-60.0 [facility] Comment on above: Performed By: #### C BC #### [facility] [address] [place] [address] Dr. Ninfa Donato MANUAL DIFF REQ NO Normal [facility] Comment on above: Performed By: #### C BC #### [facility] [address] [place] [address] Dr. Ninfa Donato MCH (RBC) [Entitic mass] 31.3 pg Normal 25.9-34.0 [facility] Comment on above: Performed By: #### C BC #### [facility] [address] [place] [address] Dr. Ninfa Donato MCHC (RBC) [Mass/Vol] 33.2 g/dL Normal 29.9-35.2 [facility] Comment on above: Performed By: #### C BC #### [facility] [address] [place] [address] Dr. Ninfa Donato MCV (RBC) [Entitic vol] 94.1 fL Critically high 80.0-94.0 [facility] Comment on above: Performed By: #### C BC #### [facility] [address] [place] [address] Dr. Ninfa Donato MONO # 0.5 103/ul Normal 0.3-0.8 [facility] Comment on above: Performed By: #### C BC #### [facility] [address] [address] [address] Ninfa Donato Monocytes/100 WBC (Bld) 9.0 % Normal 1.7-12.0 [facility] Comment on above: Performed By: #### C BC #### [facility] [address] [address] [address] Ninfa Donato NEUT # 3.0 103/ul Normal 1.4-6.5 [facility] Comment on above: Performed By: #### C BC #### [facility] [address] [address] [address] Ninfa Donato Neutrophils/100 WBC (Bld) 57.9 % Normal 43.0-75.0 [facility] Comment on above: Performed By: #### C BC #### [facility] [address] [place] [address] Dr. Ninfa Donato Platelet mean volume (Bld) [Entitic vol] 9.0 fL Critically low 9.5-13.5 [facility] Comment on above: Performed By: #### C BC #### [facility] [address] [address] [address] Ninfa Donato PLT 190 103/ul Normal 150-450 [facility] Comment on above: Performed By: #### C BC #### [facility] [address] [place] [address] Dr. Ninfa Donato RBC 5.28 106/ul Normal 4.70-6.10 [facility] Comment on above: Performed By: #### C BC #### [facility] [address] [place] [address] Dr. Ninfa Donato WBC 5.1 103/ul Normal 4.0-11.0 [facility] Comment on above: Performed By: #### C BC #### [facility] [address] [place] [address] Dr. Ninfa Donato LIPID PROFILEon 07-13-2021 CHOL-HDL RATIO NORM SEE BELOW Normal [facility] Comment on above: Result Comment: 3.3 - 4.4 LOW RISK 4.4 - 7.1 AVERAGE RISK 7.1 - 11.0 MODERATE RISK >11.0 HIGH RISK Performed By: #### L IPID, CMP #### [facility] [address] [place] [address] Dr. Ninfa Donato Cholesterol [Mass/Vol] 162 mg/dL Normal <=200 [facility] Comment on above: Performed By: #### L IPID, CMP #### [facility] [address] [place] [address] Dr. Ninfa Donato Cholesterol in HDL [Mass/Vol] 50 mg/dL Normal 40-60 [facility] Comment on above: Performed By: #### L IPID, CMP #### [facility] [address] [place] [address] Dr. Ninfa Donato Cholesterol in LDL [Mass/Vol] 96.8 mg/dL Normal [facility] Comment on above: Performed By: #### L IPID, CMP #### [facility] [address] [place] [address] Dr. Ninfa Donato Cholesterol.total/ Cholesterol in HDL [Mass ratio] 3.2 {ratio} Normal [facility] Comment on above: Performed By: #### L IPID, CMP #### [facility] [address] [place] [address] Dr. Ninfa Donato HDL NORMAL > or = 60 mg/dl - LO W CARDIOVASCULAR RISK <40 mg/dl - HIGH CARDIOVASCULAR RISK Normal [facility] Comment on above: Performed By: #### L IPID, CMP #### [facility] [address] [place] [address] Dr. Ninfa Donato LDL CALC NORMAL SEE BELOW Normal [facility] Comment on above: Result Comment: <100 mg/dl OPTIMAL 100 - 129 mg/dl NEAR OR ABOVE OPTIMAL 130 - 159 mg/dl BORDERLINE HIGH 160 - 189 mg/dl HIGH >190 mg/dl VERY HIGH Performed By: #### L IPID, CMP #### [facility] [address] [place] [address] Dr. Ninfa Donato Triglyceride [Mass/Vol] 76 mg/dL Normal <=150 [facility] Comment on above: Performed By: #### L IPID, CMP #### [facility] [address] [address] [address] Ninfa Donato VLDL CALC 15.2 mg/dL Normal [facility] Comment on above: Performed By: #### L IPID, CMP #### [facility] [address] [address] [address] Ninfa Donato PROF 14(COMP METB)on 022 Albumin [Mass/Vol] 3.4 g/dL Normal 3.4-5.0 [facility] Comment on above: Performed By: #### L IPID, CMP #### [facility] [address] [address] [address] Ninfa Donato Albumin/Globulin [Mass ratio] 1.1 {ratio} Normal [facility] Comment on above: Performed By: #### L IPID, CMP #### [facility] [address] [place] [address] Dr. Ninfa Donato ALP [Catalytic activity/Vol] 45 U/L Critically low 46-116 [facility] Comment on above: Performed By: #### L IPID, CMP #### [facility] [address] [place] [address] Dr. Ninfa Donato ALT [Catalytic activity/Vol] 21 U/L Normal 16-63 [facility] Comment on above: Performed By: #### L IPID, CMP #### [facility] [address] [address] [address] Ninfa Donato Anion gap [Moles/Vol] 13.3 mmol/L Normal [facility] Comment on above: Performed By: #### L IPID, CMP #### [facility] [address] [place] [address] Dr. Ninfa Donato AST [Catalytic activity/Vol] 11 U/L Critically low 15-37 [facility] Comment on above: Performed By: #### L IPID, CMP #### [facility] [address] [place] [address] Dr. Ninfa Donato Bilirubin [Mass/Vol] 0.3 mg/dL Normal 0.2-1.0 [facility] Comment on above: Performed By: #### L IPID, CMP #### [facility] [address] [address] [address] Ninfa Donato Calcium [Mass/Vol] 8.2 mg/dL Critically low 8.5-10.1 [facility] Comment on above: Performed By: #### L IPID, CMP #### [facility] [address] [place] [address] Dr. Ninfa Donato Chloride [Moles/Vol] 103 mmol/L Normal 98-107 [facility] Comment on above: Performed By: #### L IPID, CMP #### [facility] [address] [place] [address] Dr. Ninfa Donato CO2 [Moles/Vol] 27.3 mmol/L Normal 21.0-32.0 [facility] Comment on above: Performed By: #### L IPID, CMP #### [facility] [address] [place] [address] Dr. Ninfa Donato Creatinine [Mass/Vol] 0.94 mg/dL Normal 0.70-1.30 [facility] Comment on above: Performed By: #### L IPID, CMP #### [facility] [address] [place] [address] Dr. Ninfa Donato EGFR-AF VINCENTIAN >60 Normal >=60 [facility] Comment on above: Performed By: #### L IPID, CMP #### [facility] [address] [place] [address] Dr. Ninfa Donato EGFR-NON AF VINCENTIAN >60 Normal >=60 [facility] Comment on above: Performed By: #### L IPID, CMP #### [facility] [address] [place] [address] Dr. Ninfa Donato Globulin (S) [Mass/Vol] 3.0 g/dL Normal [facility] Comment on above: Performed By: #### L IPID, CMP #### [facility] [address] [place] [address] Dr. Ninfa Donato Glucose [Mass/Vol] 108 mg/dL Critically high 74-106 T [facility] Comment on above: Performed By: #### L IPID, CMP #### [facility] [address] [address] [address] Ninfa Donato Potassium [Moles/Vol] 3.6 mmol/L Normal 3.5-5.1 [facility] Comment on above: Performed By: #### L IPID, CMP #### [facility] [address] [place] [address] Dr. Ninfa Donato Protein [Mass/Vol] 6.4 g/dL Normal 6.1-8.2 [facility] Comment on above: Performed By: #### L IPID, CMP #### [facility] [address] [place] [address] Dr. Ninfa Donato Sodium [Moles/Vol] 140 mmol/L Normal 136-145 [facility] Comment on above: Performed By: #### L IPID, CMP #### [facility] [address] [place] [address] Dr. Ninfa Donato Urea nitrogen [Mass/Vol] 13.0 mg/dL Normal 7.0-18.0 [facility] Comment on above: Performed By: #### L IPID, CMP #### [facility] [address] [place] [address] Dr. Ninfa Donato Urea nitrogen/Creatinin e [Mass ratio] 13.8 mg/mg Normal [facility] Comment on above: Performed By: #### L IPID, CMP #### [facility] [address] [place] [address] Dr. Ninfa Donato US SCROTUMon 07-13-2021 US SCROTUM EXAMINATION: US SCROTUM HISTORY: Disorder of male genital organ COMPARISON: No relevant comparison available. TECHNIQUE: High-resolution sonographic imaging of the scrotum and contents was performed. FINDINGS: The right testicle is normal in size, contour and homogeneous echotexture measuring 5.0 x 3.2 x 2.4 cm. Normal color and Doppler flow. PSV/EDV: 10.5/4.7 cm/s. Normal resistive index 0.55. The right epididymis is normal in appearance. No right hydrocele or varicocele The left testicle is normal in size and contour measuring 4.5 x 2.9 x 2.5 cm. Along the margin of the lateral testicle is 0.7 x 0.5 x 0.4 cm area of anechoic echogenicity, a cyst is favored. Normal color and Doppler flow. PSV/EDV: 5.7/2.7 cm/s. Normal resistive index The left epididymis is significant for 1.2 x 1.0 x 1.1 cm area of anechoic echogenicity, this corresponds to the patient's palpable abnormality, spermatocele versus cyst. No left hydrocele or varicocele IMPRESSION: 1.2 cm left epididymal lesion corresponding to the patient's palpable mass, spermatocele versus cyst 0.7 cm anechoic area lateral left testicle, intratesticular cyst favored Electronically authenticated by: LISBETH FARIA Date: 2021-07-13 08:35 [facility] ROGELIO HARMON ([id number]) 1960 M Date Time Provider Department 12/10/18 8:45 AM KENNETH DUEÑAS During your visit today, we recorded the following information about you: Pulse Blood pressure Weight Height 58/minute 151/66 90.4 kg 1.702 m Kenneth Dueñas MD 12/10/2018 9:06 AM Signed [facility] OUTPATIENT VISIT DATE December 10, 2018 OUTPATIENT VISIT TYPE ESTABLISHED PRIMARY CARE PHYSICIAN: Seven Garrett MD ([facility]) [address] [place] [address] REFERRING PHYSICIAN Kenneth Dueñas MD [address] [facility] [address] CHIEF COMPLAINT: Patient presents with: Established Patient Follow-Up HISTORY OF PRESENT ILLNESS: Mr. Harmon ?is a?58 year old male history of thrombolysis for PE, hx of right lower extremity DVT in 2018 who in this early October developed DVT of the left popliteal vein following trip to [place]. He presents for follow up. He has been doing well, denies significant swelling in the left leg. 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 Evaluated by Dr Aguila of Heme/Onc, recommendations made to continue eliquis full dose for 6 months followed by prophylactic dose. DUS performed at [facility] showed DVT of the popliteal and PT and peroneal veins. He had taken Eliquis in advance of his flight due to his prior history of DVT. He been off of it only for a few doses before being diagnosed with the new DVTs and restarting Eliquis. ? He remains on Eliquis. ? 2018 DVT had been in the right popliteal/distal FV at the time. ? Prior evaluation with Dr Mercado, workup negative for Factor V.? PAST MEDICAL HISTORY Diagnosis Date - Basal cell carcinoma - DVT (deep venous thrombosis) (HCC) - History of hypercoagulable state - Pulmonary embolism (HCC) - Squamous cell carcinoma PAST SURGICAL HISTORY Procedure Laterality Date - HAND SURGERY HX - KNEE ARTHROSCOPY/SURGERY - PULMONARY ANGIOGRAPHY Bilateral 05/31/2017 Placement of gustavo EKOS thrombolytic catheters into the R AND L pulm arteries, infusion of thrombolytic with EKOS catheters - TONSILLECTOMY HX SOCIAL HISTORY Social History Tobacco Use - Smoking status: Never Smoker - Smokeless tobacco: Never Used Substance Use Topics - Alcohol use: Not on file - Drug use: Not on file No family history on file. ALLERGIES: ALLERGIES Allergen Reactions - Shellfish Containin* Hives, Swelling, Anaphylaxis MEDICATIONS: cetirizine HCl (ZYRTEC ORAL) Take by mouth as needed. apixaban (ELIQUIS) 5 mg tab(s) Take 5 mg by mouth twice daily. REVIEW OF SYSTEMS: GENERAL: no acute distress All other ROS: negative I personally interviewed, confirmed and edited the above information as obtained by others. PHYSICAL EXAMINATION: BP 151/66 (BP Site: Right Arm, BP Position: Sitting, BP Cuff Size: Large Adult) Pulse (!) 58 Ht 170.2 cm (5' 7 ) Wt 90.4 kg (199 lb 3.2 oz) BMI 31.20 kg/m? General appearance: alert and cooperative individual, in no acute distress. Neck: no bruits Pulmonary: Lungs clear to auscultation bilaterally. Coronary: regular rate and regular rhythm Lower Extremities: calves soft, NT Neuro: Awake, alert, and oriented., Gait normal. Sensation grossly intact., CN II-XII grossly intact. CARDIOVASCULAR MEDICINE TESTING: I have personally reviewed the DUS. IMPRESSION/PLAN: Mr. Harmon is a 58 year old male with recurrent VTE, most recently involving the left popliteal vein following a trip from [place]. 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 Appreciate evaluation with Dr Aguila, agree with continuation of Eliquis for 6 months and then continuing at prophylactic dose thereafter. Recommend taking frequent walks, exercising calves and using compression stockings with future travel in addition to continuing his Eliquis. He will follow up with repeat DUS at [place] 04/2019 to re-evaluate his left lower extremity and follow up with his PCP, Dr Garrett. Kenneth Dueñas MD Referring Provider: KENNETH DUEÑAS [[id number]] Allergies As of Date: 12/10/2018 Noted Allergy Reaction SHELLFISH CONTAINING PRODUCTS 06/10/2017 4 - Hives 7 - Swelling 10 - Anaphylaxis Date Reviewed: 12/10/2018 Reviewed by: Kenneth Dueñas - Fully Assessed Reason for Visit: Established Patient Follow-Up [[id number]] Primary Visit Diagnosis:Personal history of DVT (deep vein thrombosis) [Z86.718] Order(s):US LEG VEIN DVT [facility]L [facility] [[id number]] Order #: [id number] FUTURE Prescriptions as of 12/10/2018 Sig: ZYRTEC ORAL Take by mouth as needed. APIXABAN 5 MG TABLET Take 5 mg by mouth twice vinayak* Problem List As Of Date 12/10/2018 Noted Resolved Acute deep vein thrombosis (DVT) of popliteal v*INVALID FOR* Encounter Status:Closed by KENNETH DUEÑAS MD on 12/10/18 [facility] 12-10-2018 PROGRESS HNO ID: [id number] Author: Kenneth Dueñas Service: ? Author Type: Physician Type: Progress Notes Filed: 12/10/2018 9:06 AM Note Text: [facility] OUTPATIENT VISIT DATE December 10, 2018 OUTPATIENT VISIT TYPE ESTABLISHED PRIMARY CARE PHYSICIAN: Seven Garrett MD ([facility]) [address] [place] [address] REFERRING PHYSICIAN Kenneth Dueñas MD [address] [facility] [address] CHIEF COMPLAINT: Patient presents with: Established Patient Follow-Up HISTORY OF PRESENT ILLNESS: Mr. Faustino Fernandezis a?58 year old male history of thrombolysis for PE, hx of right lower extremity DVT in 2018 who in this early October developed DVT of the left popliteal vein following trip to [place]. He presents for follow up. He has been doing well, denies significant swelling in the left leg. 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 Evaluated by Dr Aguila of Heme/Onc, recommendations made to continue eliquis full dose for 6 months followed by prophylactic dose. DUS performed at [facility] showed DVT of the popliteal and PT and peroneal veins. He had taken Eliquis in advance of his flight due to his prior history of DVT. He been off of it only for a few doses before being diagnosed with the new DVTs and restarting Eliquis. ? He remains on Eliquis. ? 2018 DVT had been in the right popliteal/distal FV at the time. ? Prior evaluation with Dr Mercado, workup negative for Factor V.? PAST MEDICAL HISTORY Diagnosis Date - Basal cell carcinoma - DVT (deep venous thrombosis) (HCC) - History of hypercoagulable state - Pulmonary embolism (HCC) - Squamous cell carcinoma PAST SURGICAL HISTORY Procedure Laterality Date - HAND SURGERY HX - KNEE ARTHROSCOPY/SURGERY - PULMONARY ANGIOGRAPHY Bilateral 05/31/2017 Placement of gustavo EKOS thrombolytic catheters into the R AND L pulm arteries, infusion of thrombolytic with EKOS catheters - TONSILLECTOMY HX SOCIAL HISTORY Social History Tobacco Use - Smoking status: Never Smoker - Smokeless tobacco: Never Used Substance Use Topics - Alcohol use: Not on file - Drug use: Not on file No family history on file. ALLERGIES: ALLERGIES Allergen Reactions - Shellfish Containin* Hives, Swelling, Anaphylaxis MEDICATIONS: cetirizine HCl (ZYRTEC ORAL) Take by mouth as needed. apixaban (ELIQUIS) 5 mg tab(s) Take 5 mg by mouth twice daily. REVIEW OF SYSTEMS: GENERAL: no acute distress All other ROS: negative I personally interviewed, confirmed and edited the above information as obtained by others. PHYSICAL EXAMINATION: BP 151/66 (BP Site: Right Arm, BP Position: Sitting, BP Cuff Size: Large Adult) Pulse (!) 58 Ht 170.2 cm (5' 7 ) Wt 90.4 kg (199 lb 3.2 oz) BMI 31.20 kg/m? General appearance: alert and cooperative individual, in no acute distress. Neck: no bruits Pulmonary: Lungs clear to auscultation bilaterally. Coronary: regular rate and regular rhythm Lower Extremities: calves soft, NT Neuro: Awake, alert, and oriented., Gait normal. Sensation grossly intact., CN II-XII grossly intact. CARDIOVASCULAR MEDICINE TESTING: I have personally reviewed the DUS. IMPRESSION/PLAN: Mr. Harmon is a 58 year old male with recurrent VTE, most recently involving the left popliteal vein following a trip from [place]. 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 Appreciate evaluation with Dr Aguila, agree with continuation of Eliquis for 6 months and then continuing at prophylactic dose thereafter. Recommend taking frequent walks, exercising calves and using compression stockings with future travel in addition to continuing his Eliquis. He will follow up with repeat DUS at [place] 04/2019 to re-evaluate his left lower extremity and follow up with his PCP, Dr Garrett. Kenneth Dueñas MD [facility] CNOVSPon 11-17-2018 CNOVSP Visit (SP) Office (HEMASA) ROGELIO HARMON ([id number]) 1960 M Date Time Provider Department 11/17/18 3:45 PM JONATHAN AGUILA) NIA During your visit today, we recorded the following information about you: Temperature Pulse Respiration Blood pressure 97.8 degrees 97/minute 16/minute 132/81 Weight Height 89.4 kg 1.702 m Jonathan Aguila MD 11/18/2018 11:13 AM Signed CHIEF COMPLAINT: DVT/PE HISTORY OF PRESENT ILLNESS: Rogelio Harmon is a 58 year old male who was diagnosed with DVT and extensive PE. In May 2017 the patient presented was referred to the [facility] for evaluation for shortness of breath. CT angiogram demonstrated bilateral massive pulmonary embolism. Duplex ultrasound of lower extremity noted blood clot in the right leg. Patient notes just prior to being diagnosed with his DVT and pulmonary embolism he had been traveling. He actually took a flight from [place] to [place] in early May 2017. 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 He did not get up for the duration of that flight. He notes that upon arrival in [place] he was somewhat dyspneic and he did have some right lower leg discomfort but he felt this was more cramping and he completed his vacation but upon return the dyspnea progressed. The patient was transferred to [facility] to see vascular surgery. Prior to being transferred from the [facility] he was given 1 mg/kg of Lovenox. He was transferred from the [facility] in stable condition. On May 31, 2017 completed thrombolytic procedures. Ultrasound-guided access of the left common femoral vein and placement of catheters into the right and left pulmonary arteries and subsequent infusion of thrombolytics. The patient was then placed on anticoagulation with eliquis and completed 6 months of anticoagulation. More recently had a trip to [place] and he states that he took Eliquis a couple of days on his way to [facility] and then a couple of days on his return to [facility] and subsequently noted some swelling in his left lower extremity. He had an ultrasound done on November 07 which demonstrate an occlusive thrombus in the popliteal vein. Placed back on Eliquis. He denies any increasing shortness of breath or cough. Patient denies personal or family history of blood clots. Has no history of major orthopedic surgeries or smoking. Denies known history of malignancy. He did have factor V Leiden and prothrombin gene mutation checked in the past which were both negative. Patient here in follow up for further recommendations. PAST MEDICAL HISTORY Diagnosis Date - Basal cell carcinoma - DVT (deep venous thrombosis) (HCC) - History of hypercoagulable state - Pulmonary embolism (HCC) - Squamous cell carcinoma PAST SURGICAL HISTORY Procedure Laterality Date - HAND SURGERY HX - KNEE ARTHROSCOPY/SURGERY - PULMONARY ANGIOGRAPHY Bilateral 05/31/2017 Placement of gustavo EKOS thrombolytic catheters into the R AND L pulm arteries, infusion of thrombolytic with EKOS catheters - TONSILLECTOMY HX Review of Social History includes: Social History Socioeconomic History Marital status: Spouse name: Not on file Number of children: Not on file Years of education: Not on file Highest education level: Not on file Occupational History Not on file Social Needs Financial resource strain: Not on file Food insecurity: Worry: Not on file Inability: Not on file Transportation needs: Medical: Not on file Non-medical: Not on file Tobacco Use Smoking status: Never Smoker Smokeless tobacco: Never Used Substance and Sexual Activity Alcohol use: Not on file Drug use: Not on file Sexual activity: Not on file Lifestyle Physical activity: Days per week: Not on file Minutes per session: Not on file Stress: Not on file Relationships Social connections: Talks on phone: Not on file Gets together: Not on file Attends jew service: Not on file Active member of club or organization: Not on file Attends meetings of clubs or organizations: Not on file Relationship status: Not on file Intimate partner violence: Fear of current or ex partner: Not on file Emotionally abused: Not on file Physically abused: Not on file Forced sexual activity: Not on file Other Topics Concerns: Not on file Social History Narrative Not on file No family history on file. Current Outpatient Medications: cetirizine HCl (ZYRTEC ORAL) Take by mouth as needed. apixaban (ELIQUIS) 5 mg tab(s) Take 5 mg by mouth twice daily. No current facility-administered medications for this visit. REVIEW OF SYSTEMS: Constitutional: No fever, night sweats or unwanted weight loss. Pulm: no dyspnea, cough or hemoptysis CV: no leg swelling or chest pain PHYSICAL EXAMINATION: BP 132/81 Pulse 97 Temp 36.6 ?C (97.8 ?F) (Oral) Resp 16 Ht 170.2 cm (5' 7.01 ) Wt 89.4 kg (197 lb) SpO2 97% BMI 30.85 kg/m? General appearance: well appearing, alert, in no acute distress, well-hydrated, well nourished Back: no tenderness to palpation Lungs: clear to auscultation, no wheezing or rhonchi Heart: Negative. RRR without murmur, gallop, or rubs. No ectopy. Abdomen: Normal abdominal exam, Abdomen soft, non-tender. Bowel sounds normal. No masses, organomegaly Extremities: Extremities normal. No deformities, edema, or skin discoloration. Good capillary refill. Musculoskeletal: No joint swelling, deformity, or tenderness. IMAGING ASSESSMENT/PLAN: Rogelio Harmon is a 58 year old male with history pulmonary emboli as well as a right lower extremity DVT requiring thrombolytics in May 2017 and at that point he was placed on 6 months of anticoagulation. Now after a recent trip to [place] for which he self medicated himself with a few doses of Eliquis he now has a left popliteal vein thrombosis. I discussed the natural history and his current clinical situation with him at great length. I stated that the association between travel and thromboembolism is somewhat questioned at times and I am concerned in regards to his history of recurrent thrombosis. Because of his history of recurrent thrombosis, his age and his sex I suggested that he will benefit from long-term anticoagulation. Discussed the risks of long-term anticoagulation mainly bleeding with him at great lengths, however discussed the benefits as well. At this time I suggested long-term anticoagulation with Eliquis. His dose can be reduced from 5 to2.5 mg in 6 months. We will see him in clinic in 6 months Jonathan Aguila MD November 17, 2018 11:11 AM CC: Seven Garrett MD - (Active), In Basket (Active) [address] [address] (Ph) Referring Provider: SELF [[id number]] Allergies As of Date: 11/17/2018 Noted Allergy Reaction SHELLFISH CONTAINING PRODUCTS 06/10/2017 4 - Hives 7 - Swelling 10 - Anaphylaxis Date Reviewed: 11/05/2018 Reviewed by: Natty Hector MA - Fully Assessed Reason for Visit: Pulmonary Embolism [4159] Cmt: 1 year follow up Reason For Visit History Recorded Primary Visit Diagnosis:Acute deep vein thrombosis (DVT) of popliteal vein of both lower extremities (HCC) [I82.433] Order(s):CBC + DIFF (FOR REMOTE [facility] USE) [SQRCBCDF] Order #: [id number] FUTURE COMP METABOLIC PANEL [SQCMP] Order #: [id number] FUTURE Disposition: Return in about 6 months (around 05/18/2019) for Follow up, Labs. Follow-up and Disposition History Recorded Prescriptions as of 11/17/2018 Sig: ZYRTEC ORAL Take by mouth as needed. APIXABAN 5 MG TABLET Take 5 mg by mouth twice vinayak* Problem List As Of Date 11/17/2018 Noted Resolved Acute deep vein thrombosis (DVT) of popliteal v*INVALID FOR* Encounter Status:Closed by JONATHAN AGUILA MD on 11/18/18 [facility] PROGRESSon 11-17-2018 PROGRESS HNO ID: [id number] Author: Jonathan Mock) [place] Service: ? Author Type: Physician Type: Progress Notes Filed: 11/18/2018 11:13 AM Note Text: CHIEF COMPLAINT: DVT/PE HISTORY OF PRESENT ILLNESS: Rogelio Harmon is a 58 year old male who was diagnosed with DVT and extensive PE. In May 2017 the patient presented was referred to the [facility] for evaluation for shortness of breath. CT angiogram demonstrated bilateral massive pulmonary embolism. Duplex ultrasound of lower extremity noted blood clot in the right leg. Patient notes just prior to being diagnosed with his DVT and pulmonary embolism he had been traveling. He actually took a flight from [place] to [place] in early May 2017. 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 He did not get up for the duration of that flight. He notes that upon arrival in [place] he was somewhat dyspneic and he did have some right lower leg discomfort but he felt this was more cramping and he completed his vacation but upon return the dyspnea progressed. The patient was transferred to [facility] to see vascular surgery. Prior to being transferred from the [facility] he was given 1 mg/kg of Lovenox. He was transferred from the [facility] in stable condition. On May 31, 2017 completed thrombolytic procedures. Ultrasound-guided access of the left common femoral vein and placement of catheters into the right and left pulmonary arteries and subsequent infusion of thrombolytics. The patient was then placed on anticoagulation with eliquis and completed 6 months of anticoagulation. More recently had a trip to [place] and he states that he took Eliquis a couple of days on his way to [facility] and then a couple of days on his return to [facility] and subsequently noted some swelling in his left lower extremity. He had an ultrasound done on November 07 which demonstrate an occlusive thrombus in the popliteal vein. Placed back on Eliquis. He denies any increasing shortness of breath or cough. Patient denies personal or family history of blood clots. Has no history of major orthopedic surgeries or smoking. Denies known history of malignancy. He did have factor V Leiden and prothrombin gene mutation checked in the past which were both negative. Patient here in follow up for further recommendations. PAST MEDICAL HISTORY Diagnosis Date - Basal cell carcinoma - DVT (deep venous thrombosis) (HCC) - History of hypercoagulable state - Pulmonary embolism (HCC) - Squamous cell carcinoma PAST SURGICAL HISTORY Procedure Laterality Date - HAND SURGERY HX - KNEE ARTHROSCOPY/SURGERY - PULMONARY ANGIOGRAPHY Bilateral 05/31/2017 Placement of gustavo EKOS thrombolytic catheters into the R AND L pulm arteries, infusion of thrombolytic with EKOS catheters - TONSILLECTOMY HX Review of Social History includes: Social History Socioeconomic History Marital status: Spouse name: Not on file Number of children: Not on file Years of education: Not on file Highest education level: Not on file Occupational History Not on file Social Needs Financial resource strain: Not on file Food insecurity: Worry: Not on file Inability: Not on file Transportation needs: Medical: Not on file Non-medical: Not on file Tobacco Use Smoking status: Never Smoker Smokeless tobacco: Never Used Substance and Sexual Activity Alcohol use: Not on file Drug use: Not on file Sexual activity: Not on file Lifestyle Physical activity: Days per week: Not on file Minutes per session: Not on file Stress: Not on file Relationships Social connections: Talks on phone: Not on file Gets together: Not on file Attends jew service: Not on file Active member of club or organization: Not on file Attends meetings of clubs or organizations: Not on file Relationship status: Not on file Intimate partner violence: Fear of current or ex partner: Not on file Emotionally abused: Not on file Physically abused: Not on file Forced sexual activity: Not on file Other Topics Concerns: Not on file Social History Narrative Not on file No family history on file. Current Outpatient Medications: cetirizine HCl (ZYRTEC ORAL) Take by mouth as needed. apixaban (ELIQUIS) 5 mg tab(s) Take 5 mg by mouth twice daily. No current facility-administered medications for this visit. REVIEW OF SYSTEMS: Constitutional: No fever, night sweats or unwanted weight loss. Pulm: no dyspnea, cough or hemoptysis CV: no leg swelling or chest pain PHYSICAL EXAMINATION: BP 132/81 Pulse 97 Temp 36.6 ?C (97.8 ?F) (Oral) Resp 16 Ht 170.2 cm (5' 7.01 ) Wt 89.4 kg (197 lb) SpO2 97% BMI 30.85 kg/m? General appearance: well appearing, alert, in no acute distress, well-hydrated, well nourished Back: no tenderness to palpation Lungs: clear to auscultation, no wheezing or rhonchi Heart: Negative. RRR without murmur, gallop, or rubs. No ectopy. Abdomen: Normal abdominal exam, Abdomen soft, non-tender. Bowel sounds normal. No masses, organomegaly Extremities: Extremities normal. No deformities, edema, or skin discoloration. Good capillary refill. Musculoskeletal: No joint swelling, deformity, or tenderness. IMAGING ASSESSMENT/PLAN: Rogelio Harmon is a 58 year old male with history pulmonary emboli as well as a right lower extremity DVT requiring thrombolytics in May 2017 and at that point he was placed on 6 months of anticoagulation. Now after a recent trip to [place] for which he self medicated himself with a few doses of Eliquis he now has a left popliteal vein thrombosis. I discussed the natural history and his current clinical situation with him at great length. I stated that the association between travel and thromboembolism is somewhat questioned at times and I am concerned in regards to his history of recurrent thrombosis. Because of his history of recurrent thrombosis, his age and his sex I suggested that he will benefit from long-term anticoagulation. Discussed the risks of long-term anticoagulation mainly bleeding with him at great lengths, however discussed the benefits as well. At this time I suggested long-term anticoagulation with Eliquis. His dose can be reduced from 5 to2.5 mg in 6 months. We will see him in clinic in 6 months Jonathan Aguila MD November 17, 2018 11:11 AM CC: Seven Garrett MD - (Active), In Basket (Active) [address] [phone] (Ph) Normal [facility] CNOVon 11-05-2018 CNOV Office Visit (VASSMD ) FAUSTINOROGELIO ([id number]) 1960 M Date Time Provider Department 11/05/18 10:00 AM KENNETH DUEÑAS During your visit today, we recorded the following information about you: Pulse Blood pressure Weight Height 62/minute 147/73 88.5 kg 1.702 m Kenneth Dueñas MD 11/05/2018 10:16 AM Signed [facility] OUTPATIENT VISIT DATE November 05, 2018 OUTPATIENT VISIT TYPE ESTABLISHED PRIMARY CARE PHYSICIAN: Seven Garrett MD ([facility]) [address] [place] [address] REFERRING PHYSICIAN Seven Garrett MD ([facility]) [address] [place] [address] CHIEF COMPLAINT: Patient presents with: Established Patient Follow-Up HISTORY OF PRESENT ILLNESS: Mr. Harmon ?is a?57 year old male history of thrombolysis for PE, hx of right lower extremity DVT, status post flight to [facility] earlier this month who developed DVT of the left popliteal vein. He developed swelling in the morning following his return from the trip. DUS performed at [facility] showed DVT of the popliteal and PT and peroneal veins. He had taken Eliquis in advance of his flight due to his prior history of DVT. He been off of it only for a few doses before being diagnosed with the new DVTs and restarting Eliquis. Despite the above he denies any significant discomfort in either his left or right legs. Denies any shortness of breath. He remains on Eliquis. Prior DVT had been in the right popliteal/distal FV at the time. States he is doing well, no complaints, hiking and active without issues, no shortness of breath or leg edema. ? Prior evaluation with Dr Mercado, workup negative for Factor V. ? PAST MEDICAL HISTORY Diagnosis Date - Basal cell carcinoma - DVT (deep venous thrombosis) (HCC) - History of hypercoagulable state - Pulmonary embolism (HCC) - Squamous cell carcinoma PAST SURGICAL HISTORY Procedure Laterality Date - HAND SURGERY HX - KNEE ARTHROSCOPY/SURGERY - PULMONARY ANGIOGRAPHY Bilateral 05/31/2017 Placement of gustavo EKOS thrombolytic catheters into the R AND L pulm arteries, infusion of thrombolytic with EKOS catheters - TONSILLECTOMY HX SOCIAL HISTORY Social History Tobacco Use - Smoking status: Never Smoker - Smokeless tobacco: Never Used Substance Use Topics - Alcohol use: Not on file - Drug use: Not on file No family history on file. ALLERGIES: ALLERGIES Allergen Reactions - Shellfish Containin* Hives, Swelling, Anaphylaxis MEDICATIONS: cetirizine HCl (ZYRTEC ORAL) Take by mouth as needed. apixaban (ELIQUIS) 5 mg tab(s) Take 5 mg by mouth twice daily. REVIEW OF SYSTEMS: GENERAL: no acute distress All other ROS: negative I personally interviewed, confirmed and edited the above information as obtained by others. PHYSICAL EXAMINATION: BP 147/73 (BP Site: Right Arm, BP Position: Sitting, BP Cuff Size: Large Adult) Pulse 62 Ht 170.2 cm (5' 7 ) Wt 88.5 kg (195 lb) BMI 30.54 kg/m? General appearance: well nourished, alert and cooperative individual, in no acute distress. Neck: no bruits Pulmonary: Lungs clear to auscultation bilaterally. Coronary: regular rate and regular rhythm Upper Extremities: palp radial pulses bilaterally Lower Extremities: Feet and toes warm Palp PT pulses bilaterally Neuro: Awake, alert, and oriented., Gait normal. Sensation grossly intact., CN II-XII grossly intact. CARDIOVASCULAR MEDICINE TESTING: I have personally reviewed the DUS. IMPRESSION/PLAN: Mr. 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 He had taken appropriate precautions during his flight including taking frequent walks during the flight and avoiding immobility. He as well had been on Eliquis. I am not sure whether discontinuation of the Eliquis may have increased his risk of thrombotic event. Referred to Dr Mercado for further evaluation and recommendations for ideal anticoagulation therapy during travel (lovenox vs NOAC). Continue with eliquis, compression stockings. Follow up in one month with repeat DUS LLE. Kenneth Dueñas MD Referring Provider: SEVEN GARRETT [[id number]] Allergies As of Date: 11/05/2018 Noted Allergy Reaction SHELLFISH CONTAINING PRODUCTS 06/10/2017 4 - Hives 7 - Swelling 10 - Anaphylaxis Date Reviewed: 11/05/2018 Reviewed by: Natty Hector MA - Fully Assessed Reason for Visit: Established Patient Follow-Up [[id number]] Primary Visit Diagnosis:Personal history of DVT (deep vein thrombosis) [Z86.718] Order(s):CONSULT TO HEMATOLOGY/ONCOLOGY [19990311] Order #: [id number]: 1 LEG VEIN DVT [facility] [[id number]-PM] Order #: [id number] FUTURE Prescriptions as of 11/05/2018 Sig: ZYRTEC ORAL Take by mouth as needed. APIXABAN 5 MG TABLET Take 5 mg by mouth twice vinayak* Problem List As Of Date: 11/05/2018 (None) Encounter Status:Closed by KENNETH DUEÑAS MD on 11/05/18 [facility] PROGRESSon 11-05-2018 PROGRESS HNO ID: [id number] Author: Kenneth Dueñas Service: ? Author Type: Physician Type: Progress Notes Filed: 11/05/2018 10:16 AM Note Text: [facility] OUTPATIENT VISIT DATE November 05, 2018 OUTPATIENT VISIT TYPE ESTABLISHED PRIMARY CARE PHYSICIAN: Seven Garrett MD ([facility]) [address] [id number] REFERRING PHYSICIAN Seven Garrett MD ([facility]) [facility] [facility] [address] CHIEF COMPLAINT: Patient presents with: Established Patient Follow-Up HISTORY OF PRESENT ILLNESS: Mr. Harmon ?is a?57 year old male history of thrombolysis for PE, hx of right lower extremity DVT, status post flight to [facility] earlier this month who developed DVT of the left popliteal vein. He developed swelling in the morning following his return from the trip. DUS performed at [facility] showed DVT of the popliteal and PT and peroneal veins. He had taken Eliquis in advance of his flight due to his prior history of DVT. He been off of it only for a few doses before being diagnosed with the new DVTs and restarting Eliquis. Despite the above he denies any significant discomfort in either his left or right legs. Denies any shortness of breath. He remains on Eliquis. Prior DVT had been in the right popliteal/distal FV at the time. States he is doing well, no complaints, hiking and active without issues, no shortness of breath or leg edema. ? Prior evaluation with Dr Mercado, workup negative for Factor V. ? PAST MEDICAL HISTORY Diagnosis Date - Basal cell carcinoma - DVT (deep venous thrombosis) (HCC) - History of hypercoagulable state - Pulmonary embolism (HCC) - Squamous cell carcinoma PAST SURGICAL HISTORY Procedure Laterality Date - HAND SURGERY HX - KNEE ARTHROSCOPY/SURGERY - PULMONARY ANGIOGRAPHY Bilateral 05/31/2017 Placement of gustavo EKOS thrombolytic catheters into the R AND L pulm arteries, infusion of thrombolytic with EKOS catheters - TONSILLECTOMY HX SOCIAL HISTORY Social History Tobacco Use - Smoking status: Never Smoker - Smokeless tobacco: Never Used Substance Use Topics - Alcohol use: Not on file - Drug use: Not on file No family history on file. ALLERGIES: ALLERGIES Allergen Reactions - Shellfish Containin* Hives, Swelling, Anaphylaxis MEDICATIONS: cetirizine HCl (ZYRTEC ORAL) Take by mouth as needed. apixaban (ELIQUIS) 5 mg tab(s) Take 5 mg by mouth twice daily. REVIEW OF SYSTEMS: GENERAL: no acute distress All other ROS: negative I personally interviewed, confirmed and edited the above information as obtained by others. PHYSICAL EXAMINATION: BP 147/73 (BP Site: Right Arm, BP Position: Sitting, BP Cuff Size: Large Adult) Pulse 62 Ht 170.2 cm (5' 7 ) Wt 88.5 kg (195 lb) BMI 30.54 kg/m? General appearance: well nourished, alert and cooperative individual, in no acute distress. Neck: no bruits Pulmonary: Lungs clear to auscultation bilaterally. Coronary: regular rate and regular rhythm Upper Extremities: palp radial pulses bilaterally Lower Extremities: Feet and toes warm Palp PT pulses bilaterally Neuro: Awake, alert, and oriented., Gait normal. Sensation grossly intact., CN II-XII grossly intact. CARDIOVASCULAR MEDICINE TESTING: I have personally reviewed the DUS. IMPRESSION/PLAN: Mr. 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 He had taken appropriate precautions during his flight including taking frequent walks during the flight and avoiding immobility. He as well had been on Eliquis. I am not sure whether discontinuation of the Eliquis may have increased his risk of thrombotic event. Referred to Dr Mercado for further evaluation and recommendations for ideal anticoagulation therapy during travel (lovenox vs NOAC). Continue with eliquis, compression stockings. Follow up in one month with repeat DUS LLE. Kenneth Dueñas MD [facility] CNOVon 12-25-2017 CNOV Office Visit (VASSFT ) ROGELIO HARMON ([id number]) 1960 M Date Time Provider Department 12/25/17 9:00 AM KENNETH DUEÑAS During your visit today, we recorded the following information about you: Pulse Respiration Blood pressure Weight 68/minute 18/minute 126/81 89.8 kg Height 1.727 m Kenneth Dueñas MD 12/25/2017 10:15 AM [facility] Department of Cardiovascular Medicine OUTPATIENT VISIT DATE December 25, 2017 OUTPATIENT VISIT TYPE ESTABLISHED PRIMARY CARE PHYSICIAN: Seven Garrett MD ([facility]) [address] [place] [address] REFERRING PHYSICIAN Seven Garrett MD () [address] [facility] [address] CHIEF COMPLAINT: No chief complaint on file. HISTORY OF PRESENT ILLNESS: Mr. Harmon is a 57 year old male who is seen today for follow up evaluation s/p thrombolysis of bilateral submassive PE 6 months ago. Diagnosed with right popliteal/distal FV at the time. States he is doing well, no complaints, hiking and active without issues, no shortness of breath or leg edema. He has not been wearing compression as he denies significant leg edema. DUS shows chronic nonocclusive DVT within the right distal femoral and popliteal veins. Evaluation with Dr Mercado, workup negative for Factor V. Post intervention TTE showed RVSP 19mmHg. His shortness of breath symptoms had been preceded by over a 2 week history of right leg swelling. DUS performed at [place] positive for DVT involving the right femoral and popliteal veins. Symptoms preceded by trip to [place]. On Eliquis. Undergoing routine screenings. Nonsmoker. PAST MEDICAL HISTORY Diagnosis Date - Basal cell carcinoma - DVT (deep venous thrombosis) (HCC) - History of hypercoagulable state - Pulmonary embolism (HCC) - Squamous cell carcinoma PAST SURGICAL HISTORY Procedure Laterality Date - HAND SURGERY HX - KNEE ARTHROSCOPY/SURGERY - PULMONARY ANGIOGRAPHY Bilateral 05/31/2017 Placement of gustavo EKOS thrombolytic catheters into the R AND L pulm arteries, infusion of thrombolytic with EKOS catheters - TONSILLECTOMY HX SOCIAL HISTORY Social History Substance Use Topics - Smoking status: Never Smoker - Smokeless tobacco: Never Used - Alcohol use Not on file No family history on file. ALLERGIES: ALLERGIES Allergen Reactions - Shellfish Containin* Hives, Swelling, Anaphylaxis MEDICATIONS: cetirizine HCl (ZYRTEC ORAL) Take by mouth as needed. apixaban (ELIQUIS) 5 mg tab(s) Take 5 mg by mouth twice daily. REVIEW OF SYSTEMS: GENERAL: no acute distress All other ROS: negative I personally interviewed, confirmed and edited the above information as obtained by others. PHYSICAL EXAMINATION: BP 126/81 Pulse 68 Resp 18 Ht 172.7 cm (5' 8 ) Wt 89.8 kg (198 lb) SpO2 98% BMI 30.11 kg/m? General appearance: well nourished, alert and cooperative individual, in no acute distress. Neck: no JVD Coronary: regular rate and regular rhythm Lower Extremities: calves soft, nontender, no significant edema Neuro: Awake, alert, and oriented., Gait normal. Sensation grossly intact., CN II-XII grossly intact. CARDIOVASCULAR MEDICINE TESTING: I have personally reviewed the DUS. IMPRESSION/PLAN: Mr. Harmon is a 57 year old male s/p percutaneous thrombolysis of submassive PE, secondary to RLE DVT attributed to immobility with travel. Completed 6 month course of anticoagulation. May discontinue eliquis. Appreciate hematology evaluation. Proper precautions with future travel including hydration, mobility, MECCA stockings, ASA. Follow up with PCP for routine screenings. Follow up as needed. Kenneth Dueñas MD Referring Provider: SEVEN GARRETT [[id number]] Allergies As of Date: 12/25/2017 Noted Allergy Reaction SHELLFISH CONTAINING PRODUCTS 06/10/2017 4 - Hives 7 - Swelling 10 - Anaphylaxis Date Reviewed: 12/25/2017 Reviewed by: Kenneth Dueñas - Fully Assessed Primary Visit Diagnosis:Personal history of DVT (deep vein thrombosis) [Z86.718] Other Visit Diagnosis:Acute saddle pulmonary embolism with acute cor pulmonale (HCC) [I26.02] Prescriptions as of 12/25/2017 Sig: ZYRTEC ORAL Take by mouth as needed. APIXABAN 5 MG TABLET Take 5 mg by mouth twice vinayak* Problem List As Of Date: 12/25/2017 (None) Disposition: Return if symptoms worsen or fail to improve. Follow-up and Disposition History Recorded Encounter Status:Closed by KENNETH DUEÑAS MD on 12/25/17 [facility] PROGRESSon 12-25-2017 PROGRESS HNO ID: [id number] Author: Kenneth Dueñas Service: (none) Author Type: Physician Type: Progress Notes Filed: 12/25/2017 10:15 AM Note Text: [facility] Department of Cardiovascular Medicine OUTPATIENT VISIT DATE December 25, 2017 OUTPATIENT VISIT TYPE ESTABLISHED PRIMARY CARE PHYSICIAN: Seven Garrett MD ([facility]) [address] [place] [address] REFERRING PHYSICIAN Seven Garrett MD ([facility]) [address] [facility] [address] CHIEF COMPLAINT: No chief complaint on file. HISTORY OF PRESENT ILLNESS: Mr. Harmon is a 57 year old male who is seen today for follow up evaluation s/p thrombolysis of bilateral submassive PE 6 months ago. Diagnosed with right popliteal/distal FV at the time. States he is doing well, no complaints, hiking and active without issues, no shortness of breath or leg edema. He has not been wearing compression as he denies significant leg edema. DUS shows chronic nonocclusive DVT within the right distal femoral and popliteal veins. Evaluation with Dr Mercado, workup negative for Factor V. Post intervention TTE showed RVSP 19mmHg. His shortness of breath symptoms had been preceded by over a 2 week history of right leg swelling. DUS performed at [place] positive for DVT involving the right femoral and popliteal veins. Symptoms preceded by trip to [place]. On Eliquis. Undergoing routine screenings. Nonsmoker. PAST MEDICAL HISTORY Diagnosis Date - Basal cell carcinoma - DVT (deep venous thrombosis) (HCC) - History of hypercoagulable state - Pulmonary embolism (HCC) - Squamous cell carcinoma PAST SURGICAL HISTORY Procedure Laterality Date - HAND SURGERY HX - KNEE ARTHROSCOPY/SURGERY - PULMONARY ANGIOGRAPHY Bilateral 05/31/2017 Placement of gustavo EKOS thrombolytic catheters into the R AND L pulm arteries, infusion of thrombolytic with EKOS catheters - TONSILLECTOMY HX SOCIAL HISTORY Social History Substance Use Topics - Smoking status: Never Smoker - Smokeless tobacco: Never Used - Alcohol use Not on file No family history on file. ALLERGIES: ALLERGIES Allergen Reactions - Shellfish Containin* Hives, Swelling, Anaphylaxis MEDICATIONS: cetirizine HCl (ZYRTEC ORAL) Take by mouth as needed. apixaban (ELIQUIS) 5 mg tab(s) Take 5 mg by mouth twice daily. REVIEW OF SYSTEMS: GENERAL: no acute distress All other ROS: negative I personally interviewed, confirmed and edited the above information as obtained by others. PHYSICAL EXAMINATION: BP 126/81 Pulse 68 Resp 18 Ht 172.7 cm (5' 8 ) Wt 89.8 kg (198 lb) SpO2 98% BMI 30.11 kg/m? General appearance: well nourished, alert and cooperative individual, in no acute distress. Neck: no JVD Coronary: regular rate and regular rhythm Lower Extremities: calves soft, nontender, no significant edema Neuro: Awake, alert, and oriented., Gait normal. Sensation grossly intact., CN II-XII grossly intact. CARDIOVASCULAR MEDICINE TESTING: I have personally reviewed the DUS. IMPRESSION/PLAN: Mr. Harmon is a 57 year old male s/p percutaneous thrombolysis of submassive PE, secondary to RLE DVT attributed to immobility with travel. Completed 6 month course of anticoagulation. May discontinue eliquis. Appreciate hematology evaluation. Proper precautions with future travel including hydration, mobility, MECCA stockings, ASA. Follow up with PCP for routine screenings. Follow up as needed. Kenneth Dueñas MD [facility] Vital Signs Date Time Vital Sign Value Performing Clinician Facility 03-18-2024 10:07-0500 Body height 170.18 cm [facility] 03-18-2024 10:07-0500 Body mass index (BMI) [Ratio] 27.9 kg/m2 [facility] 03-18-2024 10:07-0500 Body weight 80.96 kg [facility] 03-18-2024 10:07-0500 Diastolic blood pressure 70 mm[Hg] [facility] 03-18-2024 10:07-0500 Heart rate 70 /min [facility] 03-18-2024 10:07-0500 Respiratory rate 12 /min [facility] 03-18-2024 10:07-0500 Systolic blood pressure 120 mm[Hg] [facility] 07-02-2022 16:00-0400 Body height 170.18 cm Seven Ball Other [facility] Other 07-02-2022 16:00-0400 Body mass index (BMI) [Ratio] 30.76 kg/m2 Seven Ball Other [facility] Other 07-02-2022 16:00-0400 Body weight 89.09 kg Seven Ball Other [facility] Other 07-02-2022 16:00-0400 Diastolic blood pressure 80 mm[Hg] Seven Ball Other [facility] Other 07-02-2022 16:00-0400 Respiratory rate 12 /min Seven Ball Other [facility] Other 07-02-2022 16:00-0400 Systolic blood pressure 153 mm[Hg] Seven Ball Other [facility] [employer] Other Encounters Encounter Date Encounter Type Care Provider Facility Start: 03-18-2024 End: 03-18-2024 ambulatory [facility] Work Phone: Start: 03-18-2024 End: 03-18-2024 Encounter for general adult medical examination without abnormal findings [facility] Start: 03-18-2024 End: 03-18-2024 Patient encounter procedure [facility] Work Phone: Start: 03-15-2024 Patient encounter status [facility] Start: 04-18-2023 End: 04-18-2023 ambulatory Seven Garrett Other [facility] Other Start: 04-18-20[address] Garrett [facility] Start: 07-18-2022 ambulatory Tracey M. Lue Facility:[facility] Start: 07-02-2022 End: 07-02-2022 ambulatory Seven Garrett Other [facility] Other Start: 07-02-2022 Encounter for genera l adult medical examination without abnormal findings Seven Garrett [facility] Start: 07-02-2022 Periodic preventive med est patient 40-64yrs Seven Garrett [facility] Start: 12-06-2021 End: 12-07-2021 ambulatory Tracey M. Lue Facility:[facility] Start: 12-05-2021 End: 12-06-2021 ambulatory TRACEY M LUE . Facility:[facility] Start: 11-01-2021 End: 11-02-2021 ambulatory Tracey M. Lue Facility:[facility] Start: 08-16-2021 End: 08-17-2021 ambulatory Tracey M. Lue Facility:[facility] Start: 07-18-2021 ambulatory Tracey Lue Facility:[facility] Start: 07-14-2021 Encounter for genera l adult medical examination without abnormal findings DR SEVEN GARRETT [facility] Start: 07-13-2021 End: 07-14-[address] SEVEN GARRETT Facility:[facility] Start: 07-13-2021 End: 07-14-2021 Encounter for general adult medical examination without abnormal findings DR SEVEN GARRETT Facility:[facility] Start: 06-30-2021 Adult health examination Seven Garrett Other [facility] [employer] Other Procedures Date Procedure Procedure Detail Performing Clinician Start: 07-13-[address] OTERO IN [place] Comment on above: Performed By: #### [facility] #### [facility] [address] [address] [address] Ninfa Donato Start: 05-12-2018 Screening for malign ant neoplasm of colon Seven Garrett Other Start: 05-29-2017 General examination of patient Seven Garrett Other Start: 12-21-2014 Hyperlipidemia screening Seven Garrett Other Start: 12-21-2014 Screening for malign ant neoplasm of prostate Seven Garrett Other Depression screening Charity Garrett Other Immunizations Immunization Date Immunization Notes Care Provider Fa jillian 04-13-2020 COVID-19 Vaccine Pfi zer - Documentation Purposes Only Seven Garrett Other [facility] 03-24-2020 COVID-19 Vaccine Moderna - Documentation Purposes Only Seven Garrett Other [facility] 01-29-2020 influenza virus vaccine, split virus (incl. purified surface antigen) Seven Garrett Other [facility] [employer] Other 01-29-2020 influenza virus vaccine, unspecified formulation [facility] 01-29-2020 zoster vaccine, live Charity Garrett Other [facility] 10-15-2019 diphtheria, tetanus toxoids and acellular pertussis vaccine, unspecified formulation Seven Garrett Other [facility] 12-18-2017 influenza virus vaccine, split virus (incl. purified surface antigen) Seven Garrett Other [facility] [employer] Other 12-18-2017 influenza virus vaccine, unspecified formulation [facility] Payers Date Payer Category Payer Private Health Insurance [id number] 1960 Unknown [id number] 1960 Unknown [id number] 1960 Unknown [id number] 1960 Unknown [id number] 1960 Unknown [id number] 1960 Unknown [id number] 1960 Unknown [id number] 1960 Private Health Insurance [id number] Private Health Insurance [facility] [id number] Unknown Jesus Manuel BC/BS [id number] Social History Date Type Detail Facility Sex Assigned At [facility] Other Start: 03-18-2024 Tobacco smoking stat [facility] Never smoked tobacco (finding) [facility] Start: 03-18-2024 Sex Male (finding) [facility] Start: 1960 Sex Assigned At Male [facility] Evaluation note 04-18-2023 Note Date & Type Note Facility 04-18-2023 Evaluation note Encounter Date Diagnosis Assessment Notes Apr, History of recurrent deep vein thrombosis (DVT) (ICD-10 - Z86.718) [facility] Other Evaluation note 07-02-2022 Note Date & Type Note Facility 07-02-2022 Evaluation note Encounter Date Diagnosis Assessment Notes Jun, Wellness examination (ICD-10 - Z00.00) Healthy diet and exercise. Reviewed age-appropriat e preventive testing recommended. Jun, Obesity (BMI 30-39.9) (ICD-10 - E66.9) This patient has been instructed on a low-fat, high-fiber diet. They are instructed to reduce calories, portion sizes and snacks. It is recommended that they exercise for 30 minutes, 3-5 times weekly. Jun, Benign prostatic hyperplasia with lower urinary tract symptoms (ICD-10 - N40.1) Yearly RONEY and PSA Symptoms tolerable Jun, Nocturia (ICD-10 - R35.1) Jun, Screening PSA (prostate specific antigen) (ICD-10 - Z12.5) Jun, Screening for colon cancer (ICD-10 - Z12.11) Jun, History of recurrent deep vein thrombosis (DVT) (ICD-10 - Z86.718) Continue prophylaxis dose of Eliquis [facility] Other Evaluation note Note Date & Type Note Facility Evaluation note Diagnosis Onset Date Resolution History of pulmonary embolus (PE) acute March 18 9:48am Recurrent deep vein thrombosis (DVT) acute March 18 9:48am Screening PSA (prostate specific antigen) acute March 18 025 9:48am Wellness examination acute 2024 9:48am Screening for colon cancer noneactive March 18 9:48am [facility] Work Phone: History general Narrative - Reported Note Date & Type Note Facility History general Narrative - Reported Type Medical History Mass of left testicle Medical History History of deep vein thrombosis Medical History History of pulmonary embolus (PE ) Medical History Benign prostatic hyp erplasia with lower urinary tract symptoms Surgical History EXCISION OF BCC LLE Surgical History TONSILLECTOMY Surgical History RIGHT PALMAR FASCIECTOMY Surgical History PULMONARY ANGIOGRAM Hospitalization History SEE SURGICAL HX [employer] Other Summary Purpose Family History Relationship Condition Age at Onset Recorded Date/T michael Not Specified Diabetes mellitus Unknown father Heart disease Unknown Abdominal aortic aneurysm (AAA) Unknown mother Disorder of lung Unknown Unknown sister Malignant neoplasm Unknown Celiac disease Unknown Advance Directives Advance Directive Response Recorded Date/ Time Advance Directives No September 09 0 6:33am Chief Complaint and Reason for Visit Chief Complaint Admit Date Wellness March 18, 2024 9: 48am Reason for Visit Admit Date History of pulmonary embolus (PE) Gee quinn 2024 9:48am Recurrent deep vein thrombosis (DVT) Naveed garcia 2024 9:48am Screening PSA (prostate specific antigen ) March 18, 2024 9:48am Wellness examination March 18, 2024 9 :48am Screening for colon cancer March 18, 2024 9:48am Additional Source Comments (unrecognized sect ion and content) No Status Records FoundNo Status Records FoundNo Status Records Found INFORMATION SOURCE (unrecogn ized section and content) DATE CREATED AUTHOR 12/11/2018 [facility] DATE CREATED AUTHOR AUTHOR'S ORGANIZ ATION 04/03/2022 [facility] DATE CREATED AUTHOR AUTHOR'S ORGANIZ ATION 07/16/2022 [facility] REASON FOR VISIT (unrecogniz ed section and content) Wellnessrefill Care Teams (unrecognized sec tion and content) Team Status: Active Member Role Status Dates Seven Garrett DO Primary Care Provider Active Team Status: Inactive Member Role Status Dates Seven aGrrett DO Primary Care Provide r, Attending Provider Active Start: March 18, 2024 End: March 18, 2024 Goals (unrecognized section and content) Goals may be documented in a n alternate section FOR RECORDS PERTAINING TO PATIENTS WHO ARE OR HAVE BEEN ENROLLED IN A CHEMICAL DEPENDENCY/SUBSTANCEABUSE PROGRAM, SOME INFORMATION MAY BE OMITTED. This clinical summary was aggregated from multiple sources. Caution should be exercised in using it in the provision of clinical care. This summary normalizes information from multiple sources, and as a consequence, information in this document may materially change the coding, format and clinical context of patient data. In addition, data may be omitted in some cases. CLINICAL DECISIONS SHOULD BE BASED ON THE PRIMARY CLINICAL RECORDS. Research Journalist [facility]. provides no warranty or guarantee of the accuracy or completeness of information in this document.
== END 2024-06-17 06:57 | disposition home or self-care (01) ==
LOC: US 06:56
PROVIDERS: PCP Internal Medicine; Visit Provider Internal Medicine
DX: I71.21 Aneurysm of the ascending aorta, without rupture (principal); Z82.49 Family history of ischemic heart disease and other diseases of the circulatory system
CPT/HCPCS: 76775

== ENCOUNTER 2024-08-21 09:17 | Outpatient (OUT) | payer OTHER, SELFPAY ==
--- OUTSIDE RECORDS SUMMARY | 2024-08-21 09:39 | XMS_ITS | CCD ---
Author Organization [facility] CliniSyma Care Team Providers Care Buffet Runner Name Role Phone DR SEVEN GARRETT Attending [...] Neomycin / Polymyxin B Drug Allergy Unknown [employer] Other (1 source) Shellfish; Translations: [shellfish] Propensity to adverse reactions (disorder) [facility] Repository (1 source) No Known Medication Allergies; Translations: [No Known Medication Allergies] Propensity to adverse reactions (disorder) [facility] Repository (1 source) Neosporin Wound Cleanser *ANTISEPTICS & DISINFECTA Propensity to adverse reactions Unknown [employer] Other (1 source) patient allergy list reviewed by nurse or physicia Propensity to adverse reactions 9 Comment:Done [employer] Other (1 source) Bacitracin Drug Allergy 5 Unknown Reaction [facility] (1 source) Neomycin Drug Allergy 5 Unknown Reaction [facility] (1 source) polymyxin B Allergy to substance 5 Unknown Reaction [facility] (1 source) Neosporin Wound Cleanser *ANTI Allergy to substance 5 Unknown Reaction [facility] Comment on above: Free Text Allergy: [...] Facil ity Lab Reportson 12-07-2021 Lab Reports [id number]#1 .00CD:127 Normal [facility] Reminderson 12-07-2021 Reminders - From: Suzi Pereira [...] his follow up appointment in July. Normal [facility] Screenson 12-07-2021 Screens [id number]# 1.00CD:127 Normal [facility] Screens [id number] .00CD:127 Normal [facility] Patient Educationon 12-07-19 Patient Education Urology Testicular [...] 06/03/2001 Document Revised: 06/18/2019 Document Reviewed: 01/21/2017 [employer] Patient Education ? 2019 [employer] Normal [facility] TESTOSTERONE, TOTALon 2021 Testosterone [Mass/Vol] 647 ng/dL Normal 264-916 [facility] Comment on above: Result Comment: Adul t male reference interval is based on a population of healthy nonobese males (BMI <30) between 19 and 39 years old. Karlie et.al. JCEM 2017,102;0331-5093. PMID: [id number]. Performed By: #### T ESTTOT #### [facility] [address] [address] [address] Ninfa Donato Urology Office/Clinic Noteon 12-06-2021 [...] epididymis) - Scrotal US done on 07/13/2021 [facility] - 1.2 cm left epididymal cyst [...] agrees with this plan. 3. Anticoagulated (Z79.01: salvage determiner (current) use of anticoagulants) - Eliquis 5mg [...] can try to send the prescription to [facility]. Follow-up With When Contact Information Carlos LEYVA, [...] Father. Immunizati (more content not included)... Normal [facility] Comment on above: Result Comment: Elec tronically Signed By: Tracey Gonzalez MD\.br\Date and Time Signed: 12/06/21 10:17 EDT\.br\Electronically Co-Signed By: Annika Fischer\.br\Date and Time Co-Signed: 12/06/21 10:14 EDT Ambulatory Visit Summaryon 0 11-01-2021 Ambulatory Visit Summary ROGELIO HARMON :1960 Visit Date:11/01/2021 Ambulatory Visit Instructions Your Diagnosis Epididymal cyst Testicular cyst Anticoagulated ED (erectile dysfunction) Tests Performed Urnls Dip Stick Auto w/o Microscopy POC 16408 Your Care Team Attending Physician - Tracey [...] LEYVA, Tracey Leyva Where: [facility] Patient Educationon 11-02-19 Patient Education Urology Erectile [...] these instructions at home: Medicines ? Take tnlc-rue-mkfpqvi and prescription medicines only as told by [...] your (more content not included)... Normal [facility] Urology Office/Clinic Noteon 11-01-2021 Urology Office/Clinic [...] agrees with this plan. 3. Anticoagulated (Z79.01: salvage determiner (current) use of anticoagulants) pt is currently [...] tablet, 5 mg= (more content not included)... [facility] Comment on above: Result Comment: Elec tronically Signed By: Tracey Gonzalez MD\.br\Date and Time Signed: 11/01/21 12:54 EDT\.br\Electronically Co-Signed By: Annika Fischer.br\Date and Time Co-Signed: 11/01/21 08:59 EDT Formson 08-17-2021 Forms [id number] .00CD:127 [facility] Physician Referralon 022 Physician Referral [id number] 1.00CD:127 [facility] Screenson 08-17-2021 Screens [id number]# 1.00CD:127 Normal [facility] Screens [id number]# 1.00CD:127 Normal [facility] Ambulatory Visit Summaryon 0 08-16-2021 Ambulatory Visit Summary ROGELIO HARMON :1960 Visit Date:08/16/2021 Ambulatory Visit Instructions Your Diagnosis Epididymal cyst Anticoagulated Tests Performed Urnls Dip Stick Auto w/o Microscopy POC 53883 Your Care Team Attending Physician - Carlos [...] LEYVA, Tracey Leyva Where: [facility] Patient Educationon 08-17-19 22 Patient Education Dermatology [...] 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 How is this treated? In many cases, [...] Follow these instructions at home: ? Take ikcc-uoq-asauolt and prescription medicines only as told by [...] mouth or through an injection. ? Take zeyp-kcv-szmmqpr and prescription medicines only as told by [...] 01/26/2005 Document Revised: 06/18/2019 Document Reviewed: 09/08/2018 [employer] Patient Education ? 2019 [employer] [facility] Urology Office/Clinic Noteon 08-16-2021 Urology Office/Clinic Note [...] etiology. -Surgery last resort 3. Anticoagulated (Z79.01: alf (current) use of anticoagulants) pt is currently taking Eliquis 5mg qd hx BL DVT/PE after plane ride. Elevated risk of periop complications in future Orders: Urnls Dip Stick Auto w/o Microscopy POC 70128 Follow-up With When Contact Information Carlos LEYVA, Tracey Leyva, URL, URO Within 3 months Additional Instructions: 1 or 2 month follow up Patient Education Epidermal Cyst IMonica personally scribed for Dr. Gonzalez on (more content not included)... Normal [facility] Comment on above: Result Comment: Elec tronically Signed By: Tracey Gonzalez MD\.br\Date and Time Signed: 08/16/21 12:22 EDT\.br\Electronically Co-Signed By: Monica Howell MA\.br\Date and Time Co-Signed: 08/16/21 10:25 EDT CBC AUTO DIFFon 07-13-2021 BASO # 0.0 103/ul Normal 0.0-0.1 [facility] Comment on above: Performed By: #### C BC #### [facility] [address] [address] [address] Ninfa Donato Basophils/100 WBC (Bld) 0.8 % Normal 0.2-2.0 [facility] Comment on above: Performed By: #### C BC #### [facility] [address] [address] [address] Ninfa Donato EO # 0.1 103/ul Normal 0.0-0.7 [facility] Comment on above: Performed By: #### C BC #### [facility] [address] [address] [address] Ninfa Donato Eosinophils/100 WBC (Bld) 2.5 % Normal 0.9-7.0 [facility] Comment on above: Performed By: #### C BC #### [facility] [address] [address] [address] Ninfa Donato Erythrocyte distribution width (RBC) [Ratio] 13.0 % Normal 11.0-15.0 [facility] Comment on above: Performed By: #### C BC #### [facility] [address] [address] [address] Ninfa Donato Hematocrit (Bld) [Volume fraction] 49.7 % Normal 42.0-54.0 [facility] Comment on above: Performed By: #### C BC #### [facility] [address] [address] [address] Ninfa Donato Hemoglobin (Bld) [Mass/Vol] 16.5 g/dL Normal 14.0-18.0 [facility] Comment on above: Performed By: #### C BC #### [facility] [address] [address] [address] Ninfa Donato IG # 0.04 10e3/ul Critically high 0.00-0.03 [facility] Comment on above: Performed By: #### C BC #### [facility] [address] [place] [address] Dr. Ninfa Donato IG % 0.8 % Critically high 0.0-0.5 [facility] Comment on above: Performed By: #### C BC #### [facility] [address] [place] [address] Dr. Ninfa Donato LYMPH # 1.5 103/ul Normal 1.2-3.8 [facility] Comment on above: Performed By: #### C BC #### [facility] [address] [place] [address] Dr. Ninfa Donato Lymphocytes/100 WBC (Bld) 29.0 % Normal 20.5-60.0 [facility] Comment on above: Performed By: #### C BC #### [facility] [address] [place] [address] Dr. Ninfa Donato MANUAL DIFF REQ NO Normal [facility] Comment on above: Performed By: #### C BC #### [facility] [address] [place] [address] Dr. Ninfa Donato MCH (RBC) [Entitic mass] 31.3 pg Normal 25.9-34.0 [facility] Comment on above: Performed By: #### C BC #### [facility] [address] [place] [address] Dr. iNnfa Donato MCHC (RBC) [Mass/Vol] 33.2 g/dL Normal 29.9-35.2 [facility] Comment on above: Performed By: #### C BC #### [facility] [address] [place] [address] Dr. Ninfa Donato MCV (RBC) [Entitic vol] 94.1 fL Critically high 80.0-94.0 [facility] Comment on above: Performed By: #### C BC #### [facility] [address] [place] [address] Dr. Ninfa Donato MONO # 0.5 103/ul Normal 0.3-0.8 [facility] Comment on above: Performed By: #### C BC #### [facility] [address] [address] [address] Ninfa Donato Monocytes/100 WBC (Bld) 9.0 % Normal 1.7-12.0 [facility] Comment on above: Performed By: #### C BC #### [facility] [address] [address] [address] Ninfa Donato NEUT # 3.0 103/ul Normal 1.4-6.5 [facility] Comment on above: Performed By: #### C BC #### [facility] [address] [address] [address] Ninfa Donato Neutrophils/100 WBC (Bld) 57.9 % Normal 43.0-75.0 [facility] Comment on above: Performed By: #### C BC #### [facility] [address] [place] [address] Dr. Ninfa Donato Platelet mean volume (Bld) [Entitic vol] 9.0 fL Critically low 9.5-13.5 [facility] Comment on above: Performed By: #### C BC #### [facility] [address] [address] [address] Ninfa Donato PLT 190 103/ul Normal 150-450 [facility] Comment on above: Performed By: #### C BC #### [facility] [address] [place] [address] Dr. Ninfa Donato RBC 5.28 106/ul Normal 4.70-6.10 [facility] Comment on above: Performed By: #### C BC #### [facility] [address] [place] [address] Dr. Ninfa Donato WBC 5.1 103/ul Normal 4.0-11.0 [facility] Comment on above: Performed By: #### C BC #### [facility] [address] [place] [address] Dr. Ninfa Donato LIPID PROFILEon 07-13-2021 CHOL-HDL RATIO NORM SEE BELOW Normal [facility] Comment on above: Result Comment: 3.3 - 4.4 LOW RISK 4.4 - 7.1 AVERAGE RISK 7.1 - 11.0 MODERATE RISK >11.0 HIGH RISK Performed By: #### L IPID, CMP #### [facility] [address] [place] [address] Dr. Ninfa Donato Cholesterol [Mass/Vol] 162 mg/dL Normal <=200 [facility] Comment on above: Performed By: #### L IPID, CMP #### [facility] [address] [place] [address] Dr. Ninfa Donato Cholesterol in HDL [Mass/Vol] 50 mg/dL Normal 40-60 [facility] Comment on above: Performed By: #### L IPID, CMP #### [facility] [address] [place] [address] Dr. Ninfa Donato Cholesterol in LDL [Mass/Vol] 96.8 mg/dL Normal [facility] Comment on above: Performed By: #### L IPID, CMP #### [facility] [address] [place] [address] Dr. Ninfa Donato Cholesterol.total/ Cholesterol in HDL [Mass ratio] 3.2 {ratio} Normal [facility] Comment on above: Performed By: #### L IPID, CMP #### [facility] [address] [place] [address] Dr. Ninfa Donato HDL NORMAL > or = 60 mg/dl - LO W CARDIOVASCULAR RISK <40 mg/dl - HIGH CARDIOVASCULAR RISK Normal [facility] Comment on above: Performed By: #### L IPID, CMP #### [facility] [address] [place] [address] Dr. Ninfa oDnato LDL CALC NORMAL SEE BELOW Normal [facility] Comment on above: Result Comment: <100 mg/dl OPTIMAL 100 - 129 mg/dl NEAR OR ABOVE OPTIMAL 130 - 159 mg/dl BORDERLINE HIGH 160 - 189 mg/dl HIGH >190 mg/dl VERY HIGH Performed By: #### L IPID, CMP #### [facility] [address] [place] [address] Dr. Ninfa Donato Triglyceride [Mass/Vol] 76 mg/dL Normal <=150 [facility] Comment on above: Performed By: #### L IPID, CMP #### [facility] [address] [address] [address] Ninfa Donato VLDL CALC 15.2 mg/dL Normal [facility] Comment on above: Performed By: #### L IPID, CMP #### [facility] [address] [address] [address] Ninfa Donato PROF 14(COMP METB)on 022 Albumin [Mass/Vol] 3.4 g/dL Normal 3.4-5.0 [facility] Comment on above: Performed By: #### L IPID, CMP #### [facility] [address] [address] [address] Ninfa Donato Albumin/Globulin [Mass ratio] 1.1 {ratio} Normal [facility] Comment on above: Performed By: #### L IPID, CMP #### [facility] [address] [place] [address] Dr. Ninfa Donato ALP [Catalytic activity/Vol] 45 U/L Critically low 46-116 [facility] Comment on above: Performed By: #### L IPID, CMP #### [facility] [address] [place] [address] Dr. Ninfa Donato ALT [Catalytic activity/Vol] 21 U/L Normal 16-63 [facility] Comment on above: Performed By: #### L IPID, CMP #### [facility] [address] [address] [address] Ninfa Donato Anion gap [Moles/Vol] 13.3 mmol/L Normal [facility] Comment on above: Performed By: #### L IPID, CMP #### [facility] [address] [place] [address] Dr. Ninfa Donato AST [Catalytic activity/Vol] 11 U/L Critically low 15-37 [facility] Comment on above: Performed By: #### L IPID, CMP #### [facility] [address] [place] [address] Dr. Ninfa Donato Bilirubin [Mass/Vol] 0.3 mg/dL Normal 0.2-1.0 [facility] Comment on above: Performed By: #### L IPID, CMP #### [facility] [address] [address] [address] Ninfa Donato Calcium [Mass/Vol] 8.2 mg/dL Critically low 8.5-10.[address] [facility] Comment on above: Performed By: #### L IPID, CMP #### [facility] [address] [place] [address] Dr. Ninfa Donato Chloride [Moles/Vol] 103 mmol/L Normal 98-107 [facility] Comment on above: Performed By: #### L IPID, CMP #### [facility] [address] [place] [address] Dr. Ninfa Donato CO2 [Moles/Vol] 27.3 mmol/L Normal 21.0-32.0 [facility] Comment on above: Performed By: #### L IPID, CMP #### [facility] [address] [place] [address] Dr. Ninfa Donato Creatinine [Mass/Vol] 0.94 mg/dL Normal 0.70-1.30 [facility] Comment on above: Performed By: #### L IPID, CMP #### [facility] [address] [place] [address] Dr. Ninfa Donato EGFR-AF ALGERIAN >60 Normal >=60 [facility] Comment on above: Performed By: #### L IPID, CMP #### [facility] [address] [place] [address] Dr. Ninfa Donato EGFR-NON AF ALGERIAN >60 Normal >=60 [facility] Comment on above: Performed By: #### L IPID, CMP #### [facility] [address] [place] [address] Dr. Ninfa Donato Globulin (S) [Mass/Vol] 3.0 g/dL Normal [facility] Comment on above: Performed By: #### L IPID, CMP #### [facility] [address] [place] [address] Dr. Ninfa Donato Glucose [Mass/Vol] 108 mg/dL Critically high 74-106 [facility] Comment on above: Performed By: #### L IPID, CMP #### [facility] [address] [address] [address] Ninfa Donato Potassium [Moles/Vol] 3.6 mmol/L Normal 3.5-5.1 [facility] Comment on above: Performed By: #### L IPID, CMP #### [facility] [address] [place] [address] Dr. Ninfa Donato Protein [Mass/Vol] 6.4 g/dL Normal 6.1-8.2 [facility] Comment on above: Performed By: #### L IPID, CMP #### [facility] [address] [place] [address] Dr. Ninfa Donato Sodium [Moles/Vol] 140 mmol/L Normal 136-145 [facility] Comment on above: Performed By: #### L IPID, CMP #### [facility] [address] [place] [address] Dr. Ninfa Donato Urea nitrogen [Mass/Vol] 13.0 mg/dL Normal 7.0-18.0 [facility] Comment on above: Performed By: #### L IPID, CMP #### [facility] [address] [place] [address] Dr. Ninfa Donato Urea nitrogen/Creatinin e [Mass ratio] 13.8 mg/mg Normal [facility] Comment on above: Performed By: #### L IPID, CMP #### [facility] [address] [place] [address] Dr. Ninfa Donato US SCROTUMon 07-13-2021 [place] [...] by: LISBETH FARIA Date: 2021-07-13 08:[address] [facility] ([facility] ) ROGELIO HARMON ([id number]) 1960 M Date Time Provider Department 12/10/18 8:45 AM KENNETH DUEÑAS During your visit today, we recorded the following information about you: Pulse Blood pressure Weight Height 58/minute 151/66 90.4 kg 1.702 m Kenneth Dueñas MD 12/10/2018 9:06 AM Signed [facility] OUTPATIENT VISIT DATE December 10, 2018 OUTPATIENT VISIT TYPE ESTABLISHED PRIMARY CARE PHYSICIAN: Seven Garrett MD ([facility]) [address] [place] [address] REFERRING PHYSICIAN Kenneth Dueñas MD [address] [facility] [id number] CHIEF COMPLAINT: Patient presents with: Established Patient Follow-Up HISTORY OF PRESENT ILLNESS: Mr. Harmon ?is a?58 year old male history of thrombolysis for PE, hx of right lower extremity DVT in 2018 who in this early October developed DVT of the left popliteal vein following trip to [place]. He presents for follow up. He has been doing well, denies significant swelling in the left leg. 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 Evaluated by Dr Aguila of Heme/Onc, recommendations made to continue eliquis full dose for 6 months followed by prophylactic dose. DUS performed at [facility] showed DVT of the popliteal and PT [...] left popliteal vein following a trip from [place]. 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 Appreciate evaluation with Dr Aguila, agree with continuation of Eliquis for 6 months and then continuing at prophylactic dose thereafter. Recommend taking frequent walks, exercising calves and using compression stockings with future travel in addition to continuing his Eliquis. He will follow up with repeat DUS at [facility] 04/2019 to re-evaluate his left lower extremity and follow up with his PCP, Dr Garrett. Kenneth Dueñas MD Referring Provider: KENNETH DUEÑAS [[id number]] Allergies As of Date: 12/10/2018 Noted Allergy Reaction SHELL[employer] CONTAINING PRODUCTS 06/10/2017 4 - Hives 7 - Swelling 10 - Anaphylaxis Date Reviewed: 12/10/2018 Reviewed by: Kenneth Dueñas - Fully Assessed Reason for Visit: Established Patient Follow-Up [[id number]] Primary Visit Diagnosis:Personal history of DVT (deep vein thrombosis) [Z86.718] Order(s):US LEG VEIN DVT [facility] [[id number]] Order #: [id number] FUTURE Prescriptions as of 12/10/2018 Sig: ZYRTEC ORAL Take by mouth as needed. APIXABAN 5 MG TABLET Take 5 mg by mouth twice vinayak* Problem List As Of Date 12/10/2018 Noted Resolved Acute deep vein thrombosis (DVT) of popliteal v*INVALID FOR* Encounter Status:Closed by KENNETH DUEÑAS MD on 12/10/18 [facility] PROGRESSon 12-10-2018 PROGRESS HNO ID: [id number] Author: Kenneth Dueñas Service: ? Author Type: Physician Type: Progress Notes Filed: 12/10/2018 9:06 AM Note Text: [facility] OUTPATIENT VISIT DATE December 10, 2018 OUTPATIENT VISIT TYPE ESTABLISHED PRIMARY CARE PHYSICIAN: Sveen Garrett MD ([facility]) [address] [place] [address] REFERRING PHYSICIAN Kenneth Dueñas MD [address] [facility] [id number] CHIEF COMPLAINT: Patient presents with: Established Patient Follow-Up HISTORY OF PRESENT ILLNESS: Mr. Faustino Fernandezis a?58 year old male history of thrombolysis for PE, hx of right lower extremity DVT in 2018 who in this early October developed DVT of the left popliteal vein following trip to [place]. He presents for follow up. He has been doing well, denies significant swelling in the left leg. 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 Evaluated by Dr Aguila of Heme/Onc, recommendations made to continue eliquis full dose for 6 months followed by prophylactic dose. DUS performed at [facility] showed DVT of the popliteal and PT [...] left popliteal vein following a trip from [place]. 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 Appreciate evaluation with Dr Aguila, agree with continuation of Eliquis for 6 months and then continuing at prophylactic dose thereafter. Recommend taking frequent walks, exercising calves and using compression stockings with future travel in addition to continuing his Eliquis. He will follow up with repeat DUS at [facility] 04/2019 to re-evaluate his left lower extremity and follow up with his PCP, Dr Garrett. Kenneth Dueñas MD [facility] CNOVSPon 11-17-2018 CNOVSP Visit (SP) Office ([facility]) ROGELIO HARMON ([id number]) 1960 M Date Time Provider Department 11/17/18 3:45 PM JONATHAN AGUILA) NIA During your visit today, we recorded the following information about you: Temperature Pulse Respiration Blood pressure 97.8 degrees 97/minute 16/minute 132/81 Weight Height 89.4 kg 1.702 m Jonatahn Aguila MD 11/18/2018 11:13 AM Signed CHIEF COMPLAINT: DVT/PE HISTORY OF PRESENT ILLNESS: Rogelio Harmon is a 58 year old male who was diagnosed with DVT and extensive PE. In May 2017 the patient presented was referred to the [facility] for evaluation for shortness of breath. CT angiogram demonstrated bilateral massive pulmonary embolism. Duplex ultrasound of lower extremity noted blood clot in the right leg. Patient notes just prior to being diagnosed with his DVT and pulmonary embolism he had been traveling. He actually took a flight from [place] to [place] in early May 2017. 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 He did not get up for the duration of that flight. He notes that upon arrival in [place] he was somewhat dyspneic and he did have some right lower leg discomfort but he felt this was more cramping and he completed his vacation but upon return the dyspnea progressed. The patient was transferred to [facility] to see vascular surgery. Prior to being transferred from the [facility] he was given 1 mg/kg of Lovenox. He was transferred from the [facility] in stable condition. On May 31, 2017 completed thrombolytic procedures. Ultrasound-guided access of the left common femoral vein and placement of catheters into the right and left pulmonary arteries and subsequent infusion of thrombolytics. The patient was then placed on anticoagulation with eliquis and completed 6 months of anticoagulation. More recently had a trip to [place] and he states that he took Eliquis a couple of days on his way to [facility] and then a couple of days on his return to [facility] and subsequently noted some swelling in his [...] file Gets together: Not on file Attends evangelical service: Not on file Active member of [...] anticoagulation. Now after a recent trip to [place] for which he self medicated himself with [...] - (Active), In Basket (Active) [address] [address] (Ph) Referring Provider: SELF [[id number]] Allergies As [...] (HCC) [I82.433] Order(s):CBC + DIFF (FOR REMOTE [facility] USE) [SQRCBCDF] Order #: [id number] FUTURE COMP METABOLIC PANEL [SQCMP] Order #: [id number] FUTURE Disposition: Return in about 6 months [...] Status:Closed by JONATHAN AGUILA MD on 11/18/18 [facility] PROGRESSon 11-17-2018 PROGRESS HNO ID: [id number] Author: Jonathan Mock) [place] Service: ? Author Type: Physician Type: Progress Notes Filed: 11/18/2018 11:13 AM Note Text: CHIEF COMPLAINT: DVT/PE HISTORY OF PRESENT ILLNESS: Rogelio Harmon is a 58 year old male who was diagnosed with DVT and extensive PE. In May 2017 the patient presented was referred to the [facility] for evaluation for shortness of breath. CT angiogram demonstrated bilateral massive pulmonary embolism. Duplex ultrasound of lower extremity noted blood clot in the right leg. Patient notes just prior to being diagnosed with his DVT and pulmonary embolism he had been traveling. He actually took a flight from [place] to [place] in early May 2017. 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 He did not get up for the duration of that flight. He notes that upon arrival in [place] he was somewhat dyspneic and he did have some right lower leg discomfort but he felt this was more cramping and he completed his vacation but upon return the dyspnea progressed. The patient was transferred to [facility] to see vascular surgery. Prior to being transferred from the [facility] he was given 1 mg/kg of Lovenox. He was transferred from the [facility] in stable condition. On May 31, 2017 completed thrombolytic procedures. Ultrasound-guided access of the left common femoral vein and placement of catheters into the right and left pulmonary arteries and subsequent infusion of thrombolytics. The patient was then placed on anticoagulation with eliquis and completed 6 months of anticoagulation. More recently had a trip to [place] and he states that he took Eliquis a couple of days on his way to [facility] and then a couple of days on his return to [facility] and subsequently noted some swelling in his [...] file Gets together: Not on file Attends evangelical service: Not on file Active member of [...] anticoagulation. Now after a recent trip to [place] for which he self medicated himself with [...] - (Active), In Basket (Active) [address] [id number] (Ph) Normal [facility] CNOVon 11-05-2018 CNOV Office Visit (VASSMD ) FAUSTINOROGELIO ([id number]) 1960 M Date Time Provider Department 11/05/18 10:00 AM KENNETH DUEÑAS During your visit today, we recorded the following information about you: Pulse Blood pressure Weight Height 62/minute 147/73 88.5 kg 1.702 m Kenneth Dueñas MD 11/05/2018 10:16 AM Signed [facility] OUTPATIENT VISIT DATE November 05, 2018 OUTPATIENT VISIT TYPE ESTABLISHED PRIMARY CARE PHYSICIAN: Seven Garrett MD ([facility]) [address] [place] [address] REFERRING PHYSICIAN Seven Garrett MD ([facility]) [address] [place] [address] CHIEF COMPLAINT: Patient presents with: Established Patient Follow-Up HISTORY OF PRESENT ILLNESS: Mr. Harmon ?is a?57 year old male history of thrombolysis for PE, hx of right lower extremity DVT, status post flight to [facility] earlier this month who developed DVT of the left popliteal vein. He developed swelling in the morning following his return from the trip. DUS performed at [facility] showed DVT of the popliteal and PT [...] Kenneth Dueñas MD Referring Provider: SEVEN GARRETT [[id number]] Allergies As of Date: 11/05/2018 Noted Allergy Reaction SHELLFISH CONTAINING PRODUCTS 06/10/2017 4 - Hives 7 - Swelling 10 - Anaphylaxis Date Reviewed: 11/05/2018 Reviewed by: Natty Hector MA - Fully Assessed Reason for Visit: Established Patient Follow-Up [[id number]] Primary Visit Diagnosis:Personal history of DVT (deep vein thrombosis) [Z86.718] Order(s):CONSULT TO HEMATOLOGY/ONCOLOGY [19990311] Order #: [id number]: 1 LEG VEIN DVT UNL [facility] [[id number]] Order #: [id number] FUTURE Prescriptions as of 11/05/2018 Sig: ZYRTEC ORAL Take by mouth as needed. APIXABAN 5 MG TABLET Take 5 mg by mouth twice vinayak* Problem List As Of Date: 11/05/2018 (None) Encounter Status:Closed by KENNETH DUEÑAS MD on 11/05/18 [facility] PROGRESSon 11-05-2018 PROGRESS HNO ID: [id number] Author: Kenneth Dueñas Service: ? Author Type: Physician Type: Progress Notes Filed: 11/05/2018 10:16 AM Note Text: [facility] OUTPATIENT VISIT DATE November 05, 2018 OUTPATIENT VISIT TYPE ESTABLISHED PRIMARY CARE PHYSICIAN: Seven Garrett MD ([facility]) [address] [id number] REFERRING PHYSICIAN Seven Garrett MD ([facility]) [facility] [facility] [address] CHIEF COMPLAINT: Patient presents with: Established Patient Follow-Up HISTORY OF PRESENT ILLNESS: Mr. Harmon ?is a?57 year old male history of thrombolysis for PE, hx of right lower extremity DVT, status post flight to [facility] earlier this month who developed DVT of the left popliteal vein. He developed swelling in the morning following his return from the trip. DUS performed at [facility] showed DVT of the popliteal and PT [...] with repeat DUS LLE. Kenneth Dueñas MD [facility] CNOVon 12-25-2017 CNOV Office Visit (VASSFT ) ROGELIO HARMON ([id number]) 1960 M Date Time Provider Department 12/25/17 9:00 AM KENNETH DUEÑAS During your visit today, we recorded the following information about you: Pulse Respiration Blood pressure Weight 68/minute 18/minute 126/81 89.8 kg Height 1.727 m Kenneth Dueñas MD 12/25/2017 10:15 AM [facility] Department of Cardiovascular Medicine OUTPATIENT VISIT DATE December 25, 2017 OUTPATIENT VISIT TYPE ESTABLISHED PRIMARY CARE PHYSICIAN: Seven Garrett MD ([facility]) [address] [place] [address] REFERRING PHYSICIAN Seven Garrett MD () [address] [facility] [address] CHIEF COMPLAINT: No chief complaint on file. [...] of right leg swelling. DUS performed at [facility] positive for DVT involving the right femoral [...] Kenneth Dueñas MD Referring Provider: SEVEN GARRETT [[id number]] Allergies As of Date: 12/25/2017 Noted Allergy [...] Status:Closed by KENNETH DUEÑAS MD on 12/25/17 [facility] PROGRESSon 12-25-2017 PROGRESS HNO ID: [id number] Author: Kenneth Dueñas Service: (none) Author Type: Physician Type: Progress Notes Filed: 12/25/2017 10:15 AM Note Text: [facility] Department of Cardiovascular Medicine OUTPATIENT VISIT DATE December 25, 2017 OUTPATIENT VISIT TYPE ESTABLISHED PRIMARY CARE PHYSICIAN: Seven Garrett MD ([facility]) [address] [place] [address] REFERRING PHYSICIAN Seven Garrett MD ([facility]) [address] [facility] [address] CHIEF COMPLAINT: No chief complaint on file. [...] of right leg swelling. DUS performed at [facility] positive for DVT involving the right femoral [...] Follow up as needed. Kenneth Dueñas MD [facility] Vital Signs Date Time Vital Sign Value Performing Clinician Facility 03-18-2024 10:07-0500 Body height 170.18 cm [facility] 03-18-2024 10:07-0500 Body mass index (BMI) [Ratio] 27.9 kg/m2 [facility] 03-18-2024 10:07-0500 Body weight 80.96 kg [facility] 03-18-2024 10:07-0500 Diastolic blood pressure 70 mm[Hg] [facility] 03-18-2024 10:07-0500 Heart rate 70 /min [facility] 03-18-2024 10:07-0500 Respiratory rate 12 /min [facility] 03-18-2024 10:07-0500 Systolic blood pressure 120 mm[Hg] [facility] 07-02-2022 16:00-0400 Body height 170.18 cm Seven Ball Other [facility] Other 07-02-2022 16:00-0400 Body mass index (BMI) [Ratio] 30.76 kg/m2 Seven Ball Other [facility] Other 07-02-2022 16:00-0400 Body weight 89.09 kg Seven Ball Other [facility] Other 07-02-2022 16:00-0400 Diastolic blood pressure 80 mm[Hg] Seven Ball Other [facility] Other 07-02-2022 16:00-0400 Respiratory rate 12 /min Seven Ball Other [facility] Other 07-02-2022 16:00-0400 Systolic blood pressure 153 mm[Hg] Seven Ball Other [facility] Other Encounters Encounter Date Encounter Type Care Provider Facility Start: 03-18-2024 End: 03-18-2024 ambulatory [facility] Work Phone: Start: 03-18-2024 End: 03-18-2024 Encounter for general adult medical examination without abnormal findings [facility] Start: 03-18-2024 End: 03-18-2024 Patient encounter procedure [facility] Work Phone: Start: 03-15-2024 Patient encounter status [facility] Start: 04-18-2023 End: 04-18-2023 ambulatory Seven Garrett Other [employer] Other Start: 04-18-2023 Telephone encounter Seven Garrett [facility] Start: 07-18-2022 ambulatory Tracey M. Lue Facility:[facility] Start: 07-02-2022 End: 07-02-2022 ambulatory Seven Garrett Other [employer] Other Start: 07-02-2022 Encounter for genera l adult medical examination without abnormal findings Seven Garrett [facility] Start: 07-02-2022 Periodic preventive med est patient 40-64yrs Seven Garrett [facility] Start: 12-06-2021 End: 12-07-2021 ambulatory Tracey M. Lue Facility:[facility] Start: 12-05-2021 End: 12-06-2021 ambulatory TRACEY M LUE . Facility:[facility] Start: 11-01-2021 End: 11-02-2021 ambulatory Tracey M. Lue Facility:[facility] Start: 08-16-2021 End: 08-17-2021 ambulatory Tracey M. Lue Facility:[facility] Start: 07-18-2021 ambulatory Tracey Lue Facility:[facility] Start: 07-14-2021 Encounter for genera l adult medical examination without abnormal findings DR SEVEN GARRETT [facility] Start: 07-13-2021 End: 07-14-[address] SEVEN GARRETT Facility:[facility] Start: 07-13-2021 End: 07-14-2021 Encounter for general adult medical examination without abnormal findings DR SEVEN GARRETT Facility:[facility] Start: 06-30-2021 Adult health examination Seven Garrett Other [facility] Other Procedures Date Procedure Procedure Detail Performing Clinician Start: 07-13-[address] OTERO IN FRANTZ Comment on above: Performed By: #### P [facility] #### [facility] [address] [address] [address] Ninfa Donato Start: 05-12-2018 Screening for malign ant neoplasm of colon Seven Garrett Other Start: 05-29-2017 General examination of patient Seven Garrett Other Start: 12-21-2014 Hyperlipidemia screening Seevn Garrett Other Start: 12-21-2014 Screening for malign ant neoplasm of prostate Seven Garrett Other Depression screening Charity Garrett Other Immunizations Immunization Date Immunization Notes Care Provider Fa jillian 04-13-2020 COVID-19 Vaccine Pfi zer - Documentation Purposes Only Seven Garrett Other [facility] 03-24-2020 COVID-19 Vaccine Moderna - Documentation Purposes Only Seven Garrett Other [facility] 01-29-2020 influenza virus vaccine, split virus (incl. purified surface antigen) Seven Garrett Other [facility] Other 01-29-2020 influenza virus vaccine, unspecified formulation [facility] 01-29-2020 zoster vaccine, live Charity Garrett Other [facility] 10-15-2019 diphtheria, tetanus toxoids and acellular pertussis vaccine, unspecified formulation Seven Garrett Other [facility] 12-18-2017 influenza virus vaccine, split virus (incl. purified surface antigen) Seven Garrett Other [facility] Other 12-18-2017 influenza virus vaccine, unspecified formulation [facility] Payers Date Payer Category Payer Private Health Insurance [id number] 1960 Unknown [id number] 1960 Unknown [id number] 1960 Unknown [id number] 1960 Unknown [id number] 1960 Unknown [id number] 1960 Unknown [id number] 1960 Unknown [id number] 1960 Private Health Insurance [id number] Private Health Insurance [facility] [id number] Unknown Jesus Manuel BC/BS [id number] Social History Date Type Detail Facility Sex Assigned At [employer] Other Start: 03-18-2024 Tobacco smoking stat [facility] Never smoked tobacco (finding) [facility] Start: 03-18-2024 Sex Male (finding) [facility] Start: 1960 Sex Assigned At Male F [facility] Evaluation note 04-18-2023 Note Date & Type Note Facility 04-18-2023 Evaluation note Encounter Date Diagnosis Assessment Notes Apr, History of recurrent deep vein thrombosis (DVT) (ICD-10 - Z86.718) [employer] Other Evaluation note 07-02-2022 Note Date & [...] - Z86.718) Continue prophylaxis dose of Eliquis [employer] Other Evaluation note Note Date & Type Note Facility Evaluation note Diagnosis Onset Date Resolution History of pulmonary embolus (PE) acute March 18 9:48am Recurrent deep vein thrombosis (DVT) acute March 18 9:48am Screening PSA (prostate specific antigen) acute March 18 025 9:48am Wellness examination acute 2024 9:48am Screening for colon cancer noneactive March 18 9:48am [facility] Work Phone: History general Narrative - Reported [...] PULMONARY ANGIOGRAM Hospitalization History SEE SURGICAL HX [employer] Other Summary Purpose Family History Relationship Condition [...] section and content) DATE CREATED AUTHOR 12/11/2018 [facility] DATE CREATED AUTHOR AUTHOR'S ORGANIZ ATION 04/03/2022 [facility] DATE CREATED AUTHOR AUTHOR'S ORGANIZ ATION 07/16/2022 [facility] REASON FOR VISIT (unrecogniz ed section and content) Wellnessrefill Care Teams (unrecognized sec tion and content) Team Status: Active Member Role Status Dates Seven Garrett DO Primary Care Provider Active Team Status: Inactive Member Role Status Dates Seven Garrett DO Primary Care Provide r, Attending Provider [...] BE BASED ON THE PRIMARY CLINICAL RECORDS. [employer] [facility]. provides no warranty or guarantee of the accuracy or completeness of information in this document.
[2024-08-21 10:38] LABS: Alanine Aminotransferase 23 U/L (16-63); Aspartate Amino Transferase 19 U/L (15-37); LDL Cholesterol Direct 53 mg/dL
== END 2024-08-21 09:18 | disposition home or self-care (01) ==
LOC: LAB 09:21
PROVIDERS: PCP Internal Medicine; Visit Provider Internal Medicine
DX: Z79.899 Other long term (current) drug therapy (principal); E78.00 Pure hypercholesterolemia, unspecified
CPT/HCPCS: 36415; 83721; 84450; 84460